=== PATIENT | female | born 1940 | race Caucasian/White ===

== ENCOUNTER 2022-02-16 09:45 | Outpatient (RCR) | payer MEDICARE, BC, SELFPAY ==
--- NOTE | 2022-01-19 14:07 | PT.OPEX ---
PT [place] [facility] PT [facility] Eval Start: 01/19/22 09:51 Freq: Status: Active Protocol: Document 01/19/22 12:23 TUTU (Rec: 01/19/22 14:01 SEW [id number]) E-Signed By Kami Ross DPT Physical Therapy Outpatient Evaluation Insurance Information Recert Due Date 03/20/22 Insurance Name Medicare B Medical Diagnosis acute mechanical LBP Treating Diagnosis mechanical back pain; impaired ROM, impaired thoracic joint mobility and soft tissue tightness; glute and core weakness Referring MD Dr. Garcia Subjective Subjective Pt reports onset of more intense back pain L>R and central in mid back area about 10 days ago. She didn't do anything sudden or have pain suddenly while doing an activity. A few months ago ( early October) her and her returned from their home in [place]. Once they got home they started tending to their large acreage property with gardening and taking care of flower beds. She states she was working several hours each day, weeding, gardening, bending over. She felt some achy-ness at the end of each day but nothing painful like she is experiencing now. Saw Dr. Garcia about a week ago, she is now on narcotics twice per day (not sure what medication), using lidocaine patches, she takes hot baths to ease the pain and is laying down most of the day to relieve pain. She can tolerate being up for about 45 minutes total at a time. Pain worse with sitting up straight in high back chair, or bending. Laying down immediately relieves it. No pain when she sleeps or first gets up, but feels it within 15 minutes of being awake and up out of bed. Gradually gets worse throughout the day where she isn't able to tolerate her 1-2 mile walks with her dogs that she typically does. Helps to have lumbar support roll or lumbar support in the car seat. No pain while sitting and driving because of this. No numbness/tingling, radicular pain. Located mostly in L mid back and sometimes radiates up. She doesn't lift anything heavy but has modified her normal lifting due to pain. She is very active at baseline: yoga, swimming, used to do weight machines prior to COVID pandemic, and was a lifelong skiier. [place]. Pt reports she is eating standing up because she can't tolerate sitting at dining room table. Goals are to reduce pain completely. No prior hx of back pain episodes but notes she's had scoliosis with no issues in the past. No imaging has been done recently. Hx also of L RAPHAEL a few years ago with no issues following. Also has broken a few bones skiing in L leg, and tore her L ACL with nonsurgical rehab. Pain Comments 9/10 at worst Current Work Status Retired Precautions Treatment Precautions/Contraindications PMH: L RAPHAEL at [facility] a few years ago; hx of L ACL tear and broken bones Therapy Limitations/Systems Review Not Limited Objective Range of Motion Lumbar ROM: flexion + pain at mid arzate, has full ROM extension full with no pain SB/ROT untested due to pain increased in standing Thoracic: Flexion limited 50% d/t pain extension full no pain SB and ROT + pain to L with 50 % limited motion Hip: Full ROM Strength Hip abduction: R 4+/5, L 4/5 Hip extension: R 4+/5, L 3+/5 Quads, hip flexors, hamstrings , ankle 5/5 grossly Swelling none Palpation Tender L thoracic paraspinals; L T8-12 joints, central PA's T8-12 Balance & Gait normal Posture scoliotic posture, lean to L Sensation/Reflexes intact Functional Test Performed & Score PA mob testing: (+) Left T8-10 (worst) and less sore T11-12; Central PA's tender T8-12, hypomobile L1-5 CPA's Active SLR: (-) B Functional squat: (-) pain, full squat TA activation: poor, needs cueing Hip traction: (+) relief of pain Assessment Assessment/Impression Pt presents with onset of intense thoracic/lumbar back pain mostly on L side 10 days ago, but gradual mild pain ongoing for a few months. No prior hx of back pain in her life but pt does have mild scoliosis. Exam findings point to L sided thoracic joint irritations and soft tissue tightness, impaired joint mobility, decreased thoracic ROM flexion, SB and ROT to left, decreased lumbar ROM flexion, glute weakness, core weakness, and directional preference into thoracic and lumbar extension. 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 She is highly motivated and a great candidate for PT. Responded excellent to manual therapy and extension program which was initiated today with significant reduction in pain following session. Primary Functional Limitations sitting in straight back chair ; bending, standing too long, walking too long, gardening, ADL's Plan of Care Rehabilitation Potential Good Physical Therapy Goals Within 8 weeks: 1. Pt will be IND with HEP to self manage her condition/ symptoms. 2. Pt will be able to sit for more than 10 minutes to tolerate eating dinner at the dinner table. 3. Pt will be able to stand for greater than 1 hour to improve standing tolerance. 4. Pt will be able to bend over to grab the dog leash or lift a small light item from the floor without back pain. 5. Pt will report 50% improvement in pain symptoms throughout the day overall. Coordination/Communication With Referral Source Treatment Plan/Direct Interventions Gait Training,Joint Mobilization,Manual Therapy, Neuromuscular Re-ed,Self-Care/ Home Management,Therapeutic Activities,Therapeutic Exercises,Traction (Mechanical ) Frequency/Duration 1-2x weekly for up to 8 weeks scaling back frequency as symptoms resolve Patient Will Be Discharged From Therapy Completion of LTG(s),Skills Plateau,Independent w/HEP, Independently Progressing Evaluation Billing Untimed Code Treatment Minutes 25 PT Eval No Charge No Complexity Low Certification Information Initial Certification Date 01/19/22 Ending Certification Date 03/20/22
== END 2022-07-21 10:46 | disposition home or self-care (01) ==
PROVIDERS: PCP Internal Medicine; Visit Provider Internal Medicine
DX: M54.50 Low back pain, unspecified (principal); Z51.89 Encounter for other specified aftercare
CPT/HCPCS: 97110; 97140; 97161

== ENCOUNTER 2022-05-26 19:34 | Outpatient (CLI) | payer MEDICARE, BC, SELFPAY | END 2022-05-26 19:35 | disposition home or self-care (01) | LOC: AMB 06-04 12:11 | PROVIDERS: PCP Internal Medicine; Visit Provider Family Medicine | DX: R53.1 Weakness (principal); R11.2 Nausea with vomiting, unspecified | CPT/HCPCS: A0425; A0427 ==

== ENCOUNTER 2022-05-26 20:07 | Emergency (ER) | payer MEDICARE, BC, SELFPAY ==
[2022-05-26 20:15] VITALS: BP 160/86; PULSE 84; RESP 20; TEMP 36.7; O2SAT 97; BMI 23.3
[2022-05-26 20:40] VITALS: BP 118/72; PULSE 79; RESP 16; O2SAT 98
[2022-05-26 21:00] VITALS: BP 144/73; PULSE 76; RESP 16; O2SAT 97
[2022-05-26 21:20] VITALS: BP 145/74; PULSE 79; RESP 16; O2SAT 97
[2022-05-26] MEDS: 0.9 % SODIUM CHLORIDE 1000 ml 1,000 ML IV (21:40)
[2022-05-26] MEDS: PROMETHAZINE 25 MG/ML INJ 12.5 MG IVP (21:40)
[2022-05-26 21:48] LABS: PCR FLU A Negative PCR FLU A (Negative); PCR FLU B Negative PCR FLU B (Negative); PCR RSV Negative PCR RSV (Negative); SARS PCR* Negative SARS-CoV-2 (Negative)
[2022-05-26 22:00] VITALS: BP 151/75; PULSE 68; RESP 16; O2SAT 97
[2022-05-26 22:39] VITALS: BP 148/68; PULSE 71; RESP 16; TEMP 36.7
--- NOTE | 2022-05-27 14:01 | ED_ITS ---
HPI - General Adult General Chief complaint: Nausea/Vomiting Stated complaint: Syncope Time Seen by Provider: 05/26/22 20:59 History of Present Illness HPI narrative: 82-year-old woman presenting via EMS with her with complaint of recurrent vomiting. Sounds like visiting from [place]. [place]? In the midst of these episodes this evening apparently did have a syncopal event; feeling quite out of it; just did not see herself being able to recover on her own. Outside of vomiting was not short of breath. No chest pain. No sensation of palpitations or irregular heartbeats. Has not had a fever. Notes a long history of what sounds to be cyclic vomiting syndrome. She later describes having a feeling that something was coming on. She took promethazine but does think she probably vomited it up. She also has what sounds like a sublingual ?amlodipine? that would also sometimes help. Has had these mild episodes since last major occurrence about 2 years ago. Recounts having 2 IVs in some sort of a sedative for treatment. Admits that is a resident of [place] would have access to a lot of marijuana or other treatments but does not use them. She is quite dry in her mouth. Not really having abdominal pain. By the time I am seeing her she has received almost a L of fluids as well as Zofran. Improved. Your notes that is a little sore on her left hip though she was observed to be ambulating to the bathroom earlier. She thinks she fell on her postoperative left hip. Does not think that really anything else is wrong other than the cyclic vomiting issue. Related Data Home Medications Medication Instructions Recorded Confirmed amlodipine 10 mg tablet 10 mg PO .Daily as needed 01/12/22 01/12/22 atorvastatin 40 mg tablet 40 mg PO .Bedtime 01/12/22 01/12/22 metoprolol succinate 50 mg 50 mg PO QDAY 01/12/22 01/12/22 tablet,extended release 24 hr omeprazole 40 mg capsule,delayed 40 mg PO QDAY 01/12/22 01/12/22 release ondansetron 4 mg disintegrating 4 mg PO PRN 01/12/22 01/12/22 tablet promethazine 25 mg tablet 25 mg PO PRN 01/12/22 01/12/22 Previous Rx's Medication Instructions Recorded naproxen 500 mg tablet 500 mg PO BIDWMEAL #28 tabs 01/12/22 Allergies Allergy/AdvReac Type Severity Reaction Status Date / Time Sugars, Metabolically Active AdvReac Intermediate Fainting Verified 01/12/22 13:58 Review of Systems Status of ROS: Reports: 10 or more systems reviewed and unremarkable except as noted in History and below [facility] Surgical History History of hip replacement (~09/2019) History of hysterectomy (~1989) Social History Smoking Status: Never smoker Do you use any of these nicotine containing products: None How often do you have a drink containing alcohol: never AUDIT-C Alcohol total score: 0 Non-prescribed substance use: denies use Exam 2 Narrative: Exam Narrative: Is noted brought in by EMS. I am seeing her after she has received some fluids. Is still having a little difficulty talking due to rather dry mouth lips rather dry. Pleasantly talkative. Cranial nerves 2-12 to be intact. Head looks to be atraumatic. Neck is supple and nontender. Back is nontender. Lungs clear. Have seen her ambulating without notable difficulty. Cardiovascular with regular rate and rhythm. Abdomen is soft and generally mildly tender. Masses appreciated. Moving all extremities without difficulty. Able to transition herself in bed. Lower extremities are without edema. EKG reviewed by me is normal sinus. Const: Vital Signs, click to edit/add: Vital Signs - 24 hr 05/26/22 20:15 05/26/22 22:00 05/26/22 21:20 Temperature 98.0 F Pulse Rate [Right Pulse Oximeter] 84 68 79 Respiratory Rate 20 16 16 Blood Pressure [Ri ght Upper Arm] 160/86 H 151/75 H 145/74 H Pulse Oximetry 97 97 97 Oxygen Delivery Me thod Room Air Room Air Room Air 05/26/22 21:00 05/26/22 20:40 05/26/22 22:39 Temperature 98.0 F Pulse Rate [Right Pulse Oximeter] 76 79 71 Respiratory Rate 16 16 16 Blood Pressure [Ri ght Upper Arm] 144/73 H 118/72 148/68 H Pulse Oximetry 97 98 Oxygen Delivery Me thod Room Air Room Air Documenting provider has reviewed patient's vital signs: yes Course Vital Signs Vital signs: Initial Vital Signs Temperature 98.0 F 05/26/22 20:15 Temperature Source Temporal Artery Scan 05/26/22 20:15 Pulse Rate 84 05/26/22 20:15 Respiratory Rate 20 05/26/22 20:15 Blood Pressure 160/86 H 05/26/22 20:15 Blood Pressure Mean 110 05/26/22 20:15 Blood Pressure Position Supine 05/26/22 20:15 Pulse Oximetry 97 05/26/22 20:15 Oxygen Delivery Method 05/26/22 20:15 Vital Signs Temperature 98.0 F 05/26/22 20:15 Pulse Rate 84 05/26/22 20:15 Respiratory Rate 20 05/26/22 20:15 Blood Pressure 160/86 H 05/26/22 20:15 Pulse Oximetry 97 05/26/22 20:15 Oxygen Delivery Method 05/26/22 20:15 Temperature 98.0 F 05/26/22 22:39 Pulse Rate 71 05/26/22 22:39 Respiratory Rate 16 05/26/22 22:39 Blood Pressure 148/68 H 05/26/22 22:39 Pulse Oximetry 97 05/26/22 22:00 Oxygen Delivery Method 05/26/22 22:00 Medical Decision Making MDM Narrative Medical decision making narrative: Initially given L of normal saline and Zofran. Overall improved though still with some residual nausea. Further given promethazine IV and I think she would benefit from more fluids which also were also given. Continues to clear and feel better. Brief duration of vomiting I don't think necessitates chemistries further in the setting of reported history. Able to tolerate oral liquid. Ambulatory from the ER. Triple screen negative Lab Data Labs: Lab Results 05/26/22 Range/Units 20:50 SARS-CoV-2 (PCR) Negative SARS-CoV-2 (Negative) Influenza Type A (PCR) Negative PCR FLU A (Negative) Influenza Type B (PCR) Negative PCR FLU B (Negative) RSV (PCR) Negative PCR RSV (Negative) ECG Data Attestation: I personally reviewed and interpreted this ECG as follows: Discharge Plan Discharge Clinical Impression: Cyclic vomiting syndrome, Dehydration Patient Disposition: Home w/ Parent or Adult Condition: Improved Additional Instructions: Was a pleasure taking care of you this evening. Do hope you only continue to improve. I am sure you know how to take care of yourself better than I can advise now. Slow advance of diet focusing on hydration. Prescriptions: No Action amlodipine 10 mg tablet 10 mg PO .Daily as needed atorvastatin 40 mg tablet 40 mg PO .Bedtime omeprazole 40 mg capsule,delayed release(DR/EC) 40 mg PO QDAY ondansetron 4 mg tablet,disintegrating 4 mg PO PRN metoprolol succinate 50 mg tablet extended release 24 hr 50 mg PO QDAY promethazine 25 mg tablet 25 mg PO PRN naproxen 500 mg tablet 500 mg PO BIDWMEAL Qty: 28 0RF Rx Instructions: take with breakfast and supper Follow Up/Referrals: Ginny Garcia MD [Primary Care Provider] - Stand Alone Forms: [facility] Medical Info Instructions
== END 2022-05-26 22:53 | disposition home or self-care (01) ==
PROVIDERS: Emergency Provider Family Medicine; PCP Internal Medicine
DX: R11.15 Cyclical vomiting syndrome unrelated to migraine (principal); E86.0 Dehydration
CPT/HCPCS: 87502; 87634; 87635; 96374; 99284; J2550; J7030

== ENCOUNTER 2024-02-22 23:00 | Outpatient (CLI) | payer MEDICARE, BC, SELFPAY | END 2024-02-22 23:01 | disposition home or self-care (01) | LOC: AMB 02-24 03:23 | PROVIDERS: PCP Internal Medicine; Visit Provider Family Medicine | DX: U07.1 COVID-19 (principal); R55 Syncope and collapse; R11.0 Nausea | CPT/HCPCS: A0425; A0427 ==

== ENCOUNTER 2024-02-22 23:25 | Emergency (ER) | payer MEDICARE, BC, SELFPAY ==
[2024-02-22 23:29] VITALS: BP 159/73; PULSE 100; RESP 20; TEMP 37.1; O2SAT 93
--- NOTE | 2024-02-22 23:39 | ED.GENADULT ---
HPI - General Adult General Chief complaint: Syncope/Fainted Stated complaint: covid Time Seen by Provider: 02/22/24 23:34 History of Present Illness HPI narrative: Pt began feeling unwell today. Tested pos for covid. Has had severe cold/flu symptoms all day (achy, weak , congested, diarrhea). Went to take the dog out at 2130 -2200. Passed out during this , doesn't remember what happened. Woke up on the floor with EMS asking her who the president was. Has been nauseous, got IV zofran 4mg from EMS. Nausea is better. BG 143 84-year-old woman presenting to the emergency department after apparent syncopal event. I have been feeling like having a really bad cold today ultimately testing positive a couple of times for COVID at home. Cough. Not really short of breath. Has been having some diarrhea and feeling increasingly bloated uncomfortable abdomen. Weak. Got up to run the dog 1 more time she says and apparently woke up on the floor. No history of seizures. Woke up to EMS. Received IV Zofran. Does still have a little nausea but mostly improved. Not measured a fever. Generally quite active and exercise tolerant. From [place] specifically [place]. Notes surprise that she does not usually crash like this unless she has sugar Related Data Home Medications ?Medication ?Instructions ?Recorded ?Confirmed amlodipine 10 mg tablet 10 mg PO .Daily as needed 01/12/22 02/22/24 atorvastatin 40 mg tablet 40 mg PO .Bedtime 01/12/22 02/22/24 metoprolol succinate 50 mg 50 mg PO QDAY 01/12/22 02/22/24 tablet,extended release 24 hr omeprazole 40 mg capsule,delayed 40 mg PO QDAY 01/12/22 02/22/24 release ondansetron 4 mg disintegrating 4 mg PO PRN 01/12/22 01/05/23 tablet promethazine 25 mg tablet 25 mg PO PRN 01/12/22 01/05/23 calcium acetate 667 mg tablet 1,334 mg PO 3XD 11/25/22 01/05/23 cholecalciferol (vitamin D3) 25 25 mcg PO DAILY 11/25/22 01/05/23 mcg (1,000 unit) tablet Previous Rx's ?Medication ?Instructions ?Recorded nirmatrelvir 150 mg-ritonavir 100 See Rx Instructions PO .COMPLEX 02/23/24 mg tablets in a dose pack #20 ea (Paxlovid) Allergies Allergy/AdvReac Type Severity Reaction Status Date / Time Sugars, Metabolically Active AdvReac Intermediate Fainting Verified 01/05/23 09:22 Review of Systems Status of ROS: Reports: 6 or more systems reviewed and unremarkable except as noted in History and below PFSH PFSH Surgical History History of hip replacement (~09/2019) ?Z96.649 - Presence of unspecified artificial hip joint (ICD-10) History of hysterectomy (~1989) ?Z90.710 - Acquired absence of both cervix and uterus (ICD-10) Social History Smoking Status: Never smoker Do you use any of these nicotine containing products: None How often do you have a drink containing alcohol: never How often do you have six or more drinks on one occasion: Never AUDIT-C Alcohol total score: 0 Non-prescribed substance use: denies use Little interest or pleasure in doing things: not at all Feeling down, depressed, or hopeless: not at all Exam Narrative: Exam Narrative: Pleasant. NAD. Does appear little tired. Cranial nerves 2-12 intact. Pupils are 2 mm and equal. Lungs with some trace clearing crepitus in the right upper lung. Heart in elevated rate and regular rhythm. Abdomen is full and generally mildly uncomfortable to palpation. Little tympanitic. Present bowel sounds. Well-perfused peripherally. Extremities are without edema. Mouth is a little sticky. Const: Vital Signs, click to edit/add: Vital Signs - 24 hr 02/22/24 23:29 02/22/24 23:42 02/22/24 23:49 Temperature 98.8 F Pulse Rate 101 H Pulse Rate [Pulse Oximeter] 100 Pulse Rate [orthos tatic lying Pulse Oximeter] Pulse Rate [orthos tatic sitting Puls e Oximeter] Pulse Rate [orthos tatic standing Pul se Oximeter] Respiratory Rate 20 Blood Pressure Blood Pressure [Ri ght Upper Arm] 159/73 H Blood Pressure [or thostatic lying Ri ght Arm] Blood Pressure [or thostatic sitting Right Arm] Blood Pressure [or thostatic standing Right Arm] Pulse Oximetry 93 92 94 Oxygen Delivery Me thod Room Air 02/23/24 00:00 02/23/24 00:24 02/23/24 00:30 Temperature Pulse Rate 90 89 86 Pulse Rate [Pulse Oximeter] Pulse Rate [orthos tatic lying Pulse Oximeter] Pulse Rate [orthos tatic sitting Puls e Oximeter] Pulse Rate [orthos tatic standing Pul se Oximeter] Respiratory Rate Blood Pressure 153/73 H Blood Pressure [Ri ght Upper Arm] Blood Pressure [or thostatic lying Ri ght Arm] Blood Pressure [or thostatic sitting Right Arm] Blood Pressure [or thostatic standing Right Arm] Pulse Oximetry 90 94 92 Oxygen Delivery Me thod 02/23/24 00:32 02/23/24 00:33 02/23/24 01:00 Temperature Pulse Rate 89 84 81 Pulse Rate [Pulse Oximeter] Pulse Rate [orthos tatic lying Pulse Oximeter] Pulse Rate [orthos tatic sitting Puls e Oximeter] Pulse Rate [orthos tatic standing Pul se Oximeter] Respiratory Rate Blood Pressure 155/70 H Blood Pressure [Ri ght Upper Arm] Blood Pressure [or thostatic lying Ri ght Arm] Blood Pressure [or thostatic sitting Right Arm] Blood Pressure [or thostatic standing Right Arm] Pulse Oximetry 92 91 89 Oxygen Delivery Me thod 02/23/24 01:01 02/23/24 01:15 02/23/24 01:15 Temperature Pulse Rate 83 90 Pulse Rate [Pulse Oximeter] Pulse Rate [orthos tatic lying Pulse Oximeter] 90 Pulse Rate [orthos tatic sitting Puls e Oximeter] Pulse Rate [orthos tatic standing Pul se Oximeter] Respiratory Rate Blood Pressure 157/71 H 156/72 H Blood Pressure [Ri ght Upper Arm] Blood Pressure [or thostatic lying Ri ght Arm] 156/72 H Blood Pressure [or thostatic sitting Right Arm] Blood Pressure [or thostatic standing Right Arm] Pulse Oximetry 92 93 Oxygen Delivery Me thod 02/23/24 01:17 02/23/24 01:17 02/23/24 01:19 Temperature Pulse Rate 94 Pulse Rate [Pulse Oximeter] Pulse Rate [orthos tatic lying Pulse Oximeter] Pulse Rate [orthos tatic sitting Puls e Oximeter] 94 Pulse Rate [orthos tatic standing Pul se Oximeter] Respiratory Rate Blood Pressure 161/87 H 168/78 H Blood Pressure [Ri ght Upper Arm] Blood Pressure [or thostatic lying Ri ght Arm] Blood Pressure [or thostatic sitting Right Arm] 161/87 H Blood Pressure [or thostatic standing Right Arm] Pulse Oximetry 93 Oxygen Delivery Me thod 02/23/24 01:19 02/23/24 01:24 02/23/24 01:30 Temperature Pulse Rate 101 H 93 Pulse Rate [Pulse Oximeter] Pulse Rate [orthos tatic lying Pulse Oximeter] Pulse Rate [orthos tatic sitting Puls e Oximeter] Pulse Rate [orthos tatic standing Pul se Oximeter] 103 H Respiratory Rate Blood Pressure Blood Pressure [Ri ght Upper Arm] Blood Pressure [or thostatic lying Ri ght Arm] Blood Pressure [or thostatic sitting Right Arm] Blood Pressure [or thostatic standing Right Arm] 168/78 H Pulse Oximetry 95 95 Oxygen Delivery Me thod 02/23/24 01:32 Temperature Pulse Rate 92 Pulse Rate [Pulse Oximeter] Pulse Rate [orthos tatic lying Pulse Oximeter] Pulse Rate [orthos tatic sitting Puls e Oximeter] Pulse Rate [orthos tatic standing Pul se Oximeter] Respiratory Rate Blood Pressure 158/78 H Blood Pressure [Ri ght Upper Arm] Blood Pressure [or thostatic lying Ri ght Arm] Blood Pressure [or thostatic sitting Right Arm] Blood Pressure [or thostatic standing Right Arm] Pulse Oximetry [address] [facility] provider has reviewed patient's vital signs: yes Course Vital Signs Vital signs: Initial Vital Signs Temperature 98.8 F 02/22/24 23:29 Temperature Source Temporal Artery Scan 02/22/24 23:29 Pulse Rate 100 02/22/24 23:29 Respiratory Rate 02/22/24 23:29 Blood Pressure 159/73 H 02/22/24 23:29 Blood Pressure Mean 101 02/22/24 23:29 Blood Pressure Position Supine 02/22/24 23:29 Pulse Oximetry 93 02/22/24 23:29 Oxygen Delivery Method Room Air 02/22/24 23:29 Vital Signs Temperature 98.8 F 02/22/24 23:29 Pulse Rate 100 02/22/24 23:29 Respiratory Rate 20 02/22/24 23:29 Blood Pressure 159/73 H 02/22/24 23:29 Pulse Oximetry 93 02/22/24 23:29 Oxygen Delivery Method Room Air 02/22/24 23:29 Temperature 98.8 F 02/22/24 23:29 Pulse Rate 92 02/23/24 01:32 Respiratory Rate 20 02/22/24 23:29 Blood Pressure 158/78 H 02/23/24 01:32 Pulse Oximetry 93 02/23/24 01:32 Oxygen Delivery Method Room Air 02/22/24 23:29 Medications Administered Medications: Discontinued Medications Generic Name Dose Route Start Last Admin Trade Name Anjali PRN Reason Stop Dose Admin Sodium Chloride 1,000 mls @ 1,000 mls/hr 02/22/24 23:51 02/23/24 01:53 0.9 % Sodium Chloride 1000 Ml IV 02/23/24 00:50 Infused .Q1H ONE Infusion Medical Decision Making MDM Narrative Medical decision making narrative: This really does seem to have been an orthostatic syncopal event in in otherwise generally healthy woman with apparent new onset COVID. Review EKG showing sinus rhythm with some PVCs with a rate of 96. Does not sound to have struck her head. No lingering or prodromal symptoms to otherwise warrant imaging. Would check for cardiovascular event monitor on manager cardiac cath. Orthostatics measure negative. Labs are reassuring. On reassessment notes herself to be markedly improved. No events on monitor. PVCs noted. GFR of 50. Renally dosed Paxlovid. Reviewed medications restrictions on Paxlovid. See patient discharge plan for further discussion Lab Data Lab results reviewed: Yes I reviewed the patient's lab results Labs: Lab Results 02/22/24 02/22/24 Range/Units 23:52 23:56 Hgb 12.5 (12.0-16.0) gm/dL Sodium 137 (135-149) mmol/L Potassium 3.9 (3.6-5.1) mmol/L Chloride 105 (96-114) mmol/L Carbon Dioxide 22 (20-32) mmol/L Anion Gap 10 (7-15) mEq/L BUN 19 (7-30) mg/dL Creatinine 1.1 (0.5-1.5) mg/dL Estimated GFR 50 ml/min Glucose 139 H (60-115) mg/dL Calcium 9.5 (8.4-10.6) mg/dL Troponin I < 0.01 L (0.01-0.04) ng/mL POC Troponin I 0.00 L (0.01-0.04) ng/ml ECG Data Attestation: I personally reviewed and interpreted this ECG as follows: (Sinus rhythm. PVCs. Rate of 96) Discharge Plan Discharge Clinical Impression: COVID, Orthostatic syncope, Diarrhea, Unifocal PVCs Patient Disposition: Home w/ Parent or Adult Condition: Improved Additional Instructions: Focus on hydration. Take care in transitions. Consider [id number] decongestant like pseudoephedrine to help with your cough. Might also try guaifenesin. Consider sleeping under the mist of a cool mist humidifier. Prescribing Paxlovid for 5 days. Consider taking half the daily dose of amlodipine over the course of this Paxlovid Hold atorvastatin until 3 days after finishing course of Paxlovid Prescriptions: New Paxlovid 150-100 mg tablets,dose pack See Rx Instructions .ROUTE .COMPLEX Qty: 20 0RF Rx Instructions: orally per package directions No Action amlodipine 10 mg tablet 10 mg PO .Daily as needed atorvastatin 40 mg tablet 40 mg PO .Bedtime omeprazole 40 mg capsule,delayed release(DR/EC) 40 mg PO QDAY ondansetron 4 mg tablet,disintegrating 4 mg PO PRN metoprolol succinate 50 mg tablet extended release 24 hr 50 mg PO QDAY promethazine 25 mg tablet 25 mg PO PRN calcium acetate 667 mg tablet 1,334 mg PO 3XD cholecalciferol (vitamin D3) 25 mcg (1,000 unit) tablet 25 mcg PO DAILY Follow Up/Referrals: Provider,Not a Local [Non-Staff] - Stand Alone Forms: [employer] Info Instructions
[2024-02-22 23:42] VITALS: O2SAT 92
[2024-02-22 23:49] VITALS: PULSE 101; O2SAT 94
[2024-02-23] VITALS (13 sets, daily range): BP systolic 153–168; BP diastolic 70–87; PULSE 81–103; O2SAT 89–95
[2024-02-23] LABS: Hemoglobin* 12.5 gm/dL (12.0-16.0)
[2024-02-23] MEDS: 0.9 % SODIUM CHLORIDE 1000 ml 1,000 ML IV (00:25)
[2024-02-23 00:36] LABS: Chloride* 105 mmol/L (96-114); Potassium* 3.9 mmol/L (3.6-5.1); Sodium* 137 mmol/L (135-149)
[2024-02-23 00:39] LABS: Anion Gap 10 mEq/L (7-15); Blood Urea Nitrogen* 19 mg/dL (7-30); Carbon Dioxide* 22 mmol/L (20-32); Creatinine* 1.1 mg/dL (0.5-1.5); Estimated Glomerular Filt Rate 50 ml/min
[2024-02-23 00:40] LABS: Calcium* 9.5 mg/dL (8.4-10.6); Glucose* 139 mg/dL (60-115)
[2024-02-23 00:54] LABS: Troponin I* < 0.01 ng/mL (0.01-0.04)
== END 2024-02-23 02:05 | disposition home or self-care (01) ==
PROVIDERS: Emergency Provider Family Medicine; PCP Internal Medicine
DX: R55 Syncope and collapse (principal); U07.1 COVID-19; I49.3 Ventricular premature depolarization
CPT/HCPCS: 36415; 80048; 84484; 85018; 93005; 94761; 99284; J7030

== ENCOUNTER 2025-04-17 00:18 | Emergency (ER) | payer MEDICARE, BC, SELFPAY ==
--- OUTSIDE RECORDS SUMMARY | 2025-04-10 10:00 | XMS_ITS | Encounter Summary ---
Author Organization [facility] Address [address] [place] [address] Care Team Providers Care Dye Boarding Machine Operator Name Role Phone Vidal Glez M.D. Primary Care Provider +1- [phone] Reason for Visit * Reason Onset Date Comments Pre-visit Intake 04/10/2025 * Appointment Request (Routine) - Authorized Specialty Diagnoses / Procedures Referred By Contact Referred To Contact Gastroenterology and Hepatology Referral ID Status Reason Start Date Expiration Date V isits Requested Visits Authorized [id number] Authorized 02/04/2025 05/07/2026 1 1 Encounter Details Date Type Department Care Team (Latest Contact Info) Description 04/10/2025 10:00 AM CDT Clinical Communication Virtual Review in [place], [place] 200 [place] [address] Pre-visit Intake Social History Tobacco Use Types Packs/Day Years Used Date Smoking Tobacco: Never Passive Smoke Exposure: Never Smokeless Tobacco: Never Alcohol Use Standard Drinks/Week Comments Never 0 (1 standard drink = 0.6 oz pur e alcohol) [facility] Utilities Answer Date Recorded In the past 12 months has e electric, gas, oil, or water company threatened to shut off services in your home? No 12/17/2024 Humiliation, Afraid, Rape, and Kick questionnair e Answer Date Recorded Within the last year, have y ou been afraid of your partner or ex-partner? No 04/02/2022 Within the last year, have y ou been humiliated or emotionally abused in other ways by your partner or ex-partner? No Within the last year, have y ou been kicked, hit, slapped, or otherwise physically hurt by your partner or ex-partner? No 04/02/2022 Within the last year, have y ou been raped or forced to have any kind of sexual activity by your partner or ex-partner? No 04/02/2022 Hunger Vital Sign Answer Date Recorded Within the past 12 months, y ou worried that your food would run out before you got the money to buy more. Never true 12/18/19 25 Within the past 12 months, t he food you bought just didn't last and you didn't have money to get more. Never true 12/17/2024 PRAPARE - Transportation Answer Date Re corded In the past 12 months, has l ack of transportation kept you from medical appointments or from getting medications? No 11/26 In the past 12 months, has l ack of transportation kept you from meetings, work, or from getting things needed for daily living? No 12/17/2024 Housing Stability Answer Date Recorded What is your living situation today? I have a [facility] place to live 12/17/2024 Education Answer Date Recorded What is the highest level of school you have completed or the highest degree you have received? Associate degree: occupational, technical, or vocational program 04/02/2022 Comments No Sex and Gender Information Value Date Recorded Sex Assigned at Female 01/11/2018 10:39 AM CDT Legal Sex Female 7:52 AM TRAFFIC INVESTIGATOR Gender Identity Female 01/11/2018 10:39 AM CDT Sexual Orientation Straight 01/11/2018 10 :39 AM CDT documented as of this encounter Plan of Treatment Upcoming Encounters Date Type Department Care Team (Late st Contact Info) Description 06/06/2025 11:45 AM TRAFFIC INVESTIGATOR Appointment Department of Radiology, [facility], in [place], [place] 200 [place] [address] Nacho Browne M.B.B.S., M.S. 200 [place] [address] Discharge Disposition: Home or Self Care documented as of this encounter Visit Diagnoses Not on filedocumented in this encounter Care Teams Dye Boarding Machine Operator Relationship Specialty Start Date End Date Vidal Glez M.D. INGA: [id number] [place] [address] PCP - General Internal Medicine 12/31/24 documented as of this encounter
--- OUTSIDE RECORDS SUMMARY | 2025-04-15 10:33 | XMS_ITS | Encounter Summary ---
Author Organization [facility] Address [address] [place] [address] Care Team Providers Care Plant Engineer Name Role Phone Vidal Glez M.D. Primary Care Provider +1- [phone] Encounter Details Date Type Department Care Team (Latest Contact Info) Description 04/15/2025 10:33 AM CDT - 04/15/2025 11:59 PM CDT Hospital Encounter Department of Laboratory Medicine and Pathology, [facility], in [place], [place] [address] [place] [address] Damian Yu M.D. [address] [place] [address] General Medical Examination Adult Discharge Disposition: Home or Self Care Social History Tobacco Use Types Packs/Day Years Used Date Smoking Tobacco: Never Passive Smoke Exposure: Never Smokeless Tobacco: Never Alcohol Use Standard Drinks/Week Comments Never 0 (1 standard drink = 0.6 oz pur e alcohol) [facility] Utilities Answer Date Recorded In the past 12 months has e [employer], gas, oil, or water [employer] threatened to shut off services in your [...] your living situation today? I have a [facility] place to live 12/17/2024 Education Answer Date Recorded What is the highest level of school you have completed or the highest degree you have received? Associate degree: occupational, technical, or vocational program 04/02/2022 Comments No Sex and Gender Information Value Date Recorded Sex Assigned at Female 01/11/2018 10:39 AM CDT Legal Sex Female 7:52 AM PATIENT FINANCIAL ADVOCATE Gender Identity Female 01/11/2018 10:39 AM CDT Sexual Orientation Straight 01/11/2018 10 :39 AM CDT documented as of this encounter Medications at Time of Discharge acetaminophen (TYLENOL) 500 mg tablet Take 2 tablets (1,000 mg total) by mouth every 6 (six) hours as needed for pain or mild pain or score 1-3 of 10. 11/21/2019 amLODIPine (Norvasc) 10 mg tablet TAKE 1 TABLET(10 MG) BY MOUTH DAILY 90 tablet 3 03/04/2025 atorvastatin (Lipitor) 40 mg tablet TAKE 1 TABLET BY MOUTH EVERY DAY 90 tablet 3 01/29/2025 metoprolol succinate (Toprol XL) 50 mg 24 hr tablet Take 1 tablet (50 mg total) by mouth daily. Do not crush or chew. 90 tablet 3 12/17/2024 ag-xia-H-glutamin-ly sine-hb124 (Airborne, lysine HCl,) 1,000-50 mg tablet, effervescent effervescent tablets Take 1 tablet by mouth daily. Drop one (1) tablet in 4-6 oz of water, let dissolve and drink. Adults and Children 14 years and older, repeat every 3-4 hours as necessary, up to 2 times per day. omeprazole (PriLOSEC) [address] capsule TAKE 1 CAPSULE(40 MG) BY MOUTH DAILY 90 capsule 4 01/29/2025 ondansetron ODT (Zofran-ODT) 4 mg disintegrating tablet Dissolve 1 tablet (4 mg total) in the mouth every 8 (eight) hours as needed for nausea or vomiting. 40 tablet 3 01/22/2025 promethazine (PHENERGAN) 12.5 mg tablet Take 1 tablet (12.5 mg total) by mouth every 6 (six) hours as needed for nausea or vomiting. 30 tablet 02/18/2022 documented as of this encounter Plan of Treatment Upcoming Encounters Date Type Department Care Team (Late st Contact Info) Description 06/06/2025 11:45 AM PATIENT FINANCIAL ADVOCATE Appointment Department of Radiology, [facility], in [place], [place] [address] [place] [phone] Nahco Browne M.B.B.S., M.S. [address] [place] [address] Discharge Disposition: Home or Self Care documented as of this encounter Procedures Procedure Name Priority Date/Time Associated Diagnosis Comments DIPSTICK, U Routine 04/15/2025 11:06 AM CDT MICROSCOPIC MANUAL Routine 04/15/2025 11 :06 AM CDT PH, U Routine 04/15/2025 11:06 AM CDT ALBUMIN, RANDOM, U Routine 04/15/2025 11 :06 AM CDT General Medical Examination Adult OSMOLALITY, U Routine 04/15/2025 11:06 AM CDT URINALYSIS WITH MICROSCOPIC Routine 04/15/2025 11:06 AM CDT General Medical Examination Adult documented in this encounter Results * (ABNORMAL) Microscopic Manual (04/15/2025 11:06 AM CDT) Microscopy Abnormal 04/15/2025 3:15 PM CDT DTL RBC <3 <3 /hpf 04/15/2025 3:15 PM CDT DTL WBC 1-3 /hpf 04/15/2025 3:15 PM CDT DTL Comment: ----REFERENCE VALUE---- <4 (Males) <11 (Females) Casts, Hyaline 4-10 /lpf 04/15/2025 3:15 PM CDT DTL Transitional Epithelial Cells 1-3(A) /hpf 04/15/2025 3:15 PM CDT DTL Squamous Epithelial Cells, U 1-3 /hpf 04/15/2025 3:15 PM CDT DTL Crystals Calcium Oxalate crystals present 04/15/2025 3:15 PM CDT DTL Urine 04/15/2025 11:0 6 AM CDT 04/15/2025 2:50 PM CDT Damian Yu M.D. LAB URINE ORDERAB LES Final Result [facility] [address] [place] [address], [facility] DTL [facility] [address] [place] [address] * Dipstick, Urine (04/15/2025 11:06 AM CDT) Hemoglobin, QL Negative Negative 04/15/2025 2:50 PM CDT DTL Leukocyte Esterase, U Negative Negative 04/15/2025 2:50 PM CDT DTL Nitrite, U Negative Negative 04/15/2025 2:50 PM CDT DTL Ketones, U Negative Negative mg/dL 04/15/2025 2:50 PM CDT DTL Glucose, U Negative Negative mg/dL 04/15/2025 2:50 PM CDT DTL Urine 04/15/2025 11:0 6 AM CDT 04/15/2025 1:44 PM CDT Damian Yu M.D. LAB URINE ORDERAB LES Final Result [facility] [address] [place] [address], [facility] 200 [place] [address] * pH, Urine (04/15/2025 11:06 AM CDT) pH, U 5.6 4.5 - 8.0 04/15/2025 2:1 5 PM CDT DTL Urine 04/15/2025 11:0 6 AM CDT 04/15/2025 1:44 PM CDT us Damian Yu M.D. LAB URINE ORDERAB LES Final Result Performing Organization Address City/[facility]/ZIP Co de Phone Number [facility] [address] [place] [address], [facility] [address] [place] [address] * Osmolality, Urine (04/15/2025 11:06 AM CDT) Osmolality, U 647 150 - 1150 mOsm/kg 04/15/2025 2:15 PM CDT DTL Urine 04/15/2025 11:0 6 AM CDT 04/15/2025 1:44 PM CDT Damian Yu M.D. LAB URINE ORDERAB LES Final Result [facility] 200 [place] [address], [facility] 200 [place] [address] * (ABNORMAL) Urinalysis, with Microscopic: Urine, Midstream (04/15/2025 11:06 AM CDT) Source Urine, Urine, Midstream 04/15/2025 1:43 PM CDT DTL Color, U Yellow 04/15/2025 1:44 PM CDT DTL Clarity, U Clear 04/15/2025 1:44 PM CDT DTL Protein, U 51(H) <26 mg/dL 04/15/2025 2:35 PM CDT DTL Protein/Osmol ality 0.79(H) <0.42 ratio 04/15/2025 2:35 PM CDT DTL Predicted 24 HR Protein, U 539(H) <229 mg/24 h 04/15/2025 2:35 PM CDT DTL Predicted Range 133-2182 mg/24 h 04/15/2025 2:35 PM CDT DTL Comment Micro done on <10 mL 04/15/2025 3:11 PM CDT DTL Urine (Urine, Midstream) 04/15/2025 11:06 AM CDT 04/15/2025 1:43 PM CDT us Damian Yu M.D. LAB URINE ORDERAB LES Final Result [facility] 200 [place] [address], [facility] 200 [place] [address] * (ABNORMAL) Albumin, Random, Urine (04/15/2025 11:06 AM CDT) Pathologist [facility] Albumin, Random, U 82.7 mg/L 2024 3:01 PM CDT DTL Comment: ----ADDITIONAL INFORMATION---- This test has been modified from the facilities director's instructions. Its performance characteristics were determined by [facility] in a manner consistent with CLIA requirements. This test has not been cleared or approved by the U.S. Food and Drug Administration. Creatinine 310 mg/dL 04/15/2025 2:35 PM CDT DTL Albumin/Creatinine Ratio 27(H) <25 mg/g 04/15/2025 3:01 PM CDT DTL Urine (Urine, Midstream) 04/15/2025 11:06 AM CDT 04/15/2025 1:56 PM CDT Damian Yu M.D. LAB URINE ORDERAB LES Final Result [facility] 200 [place], [place] [id number] [place] [address] [facility] 200 [place] [address] documented in this encounter Visit Diagnoses Diagnosis General Medical Examination Adult documented in this encounter Care Teams Plant Engineer Relationship Specialty Start Date End Date Vidal Glez M.D. [address] [place] [phone] PCP - General Internal Medicine 12/31/24 documented as of this encounter
--- OUTSIDE RECORDS SUMMARY | 2025-04-15 10:33 | XMS_ITS | Encounter Summary ---
Author Organization [facility] Address [address] [place] [address] Care Team Providers Care Manager Truck Name Role Phone Vidal Glez M.D. Primary Care Provider +1- [phone] Encounter Details Date Type Department Care Team (Latest Contact Info) Description 04/15/2025 10:33 AM CDT - 04/15/2025 11:59 PM CDT Hospital Encounter Department of Laboratory Medicine and Pathology, [facility], in [place], [place] [address] [place] [address] Damian Yu M.D. [address] [place] [address] General Medical Examination Adult; Gammopathy Monoclonal Nonspecific Discharge Disposition: Home or Self Care Social History Tobacco Use Types Packs/Day Years Used Date Smoking Tobacco: Never Passive Smoke Exposure: Never Smokeless Tobacco: Never Alcohol Use Standard Drinks/Week Comments Never 0 (1 standard drink = 0.6 oz pur e alcohol) [facility] Utilities Answer Date Recorded In the past 12 months has e [employer], gas, oil, or water [employer] threatened to shut off services in your [...] your living situation today? I have a [facility] place to live 12/17/2024 Education Answer Date Recorded What is the highest level of school you have completed or the highest degree you have received? Associate degree: occupational, technical, or vocational program 04/02/2022 Comments No Sex and Gender Information Value Date Recorded Sex Assigned at Female 01/11/2018 10:39 AM CDT Legal Sex Female 7:52 AM SET UP MECHANIC STAMPING MACHINES Gender Identity Female 01/11/2018 10:39 AM CDT [...] crush or chew. 90 tablet 3 12/17/2024 it-qhs-K-glutamin-ly sine-hb124 (Airborne, lysine HCl,) 1,000-50 mg tablet, [...] st Contact Info) Description 06/06/2025 11:45 AM SET UP MECHANIC STAMPING MACHINES Appointment Department of Radiology, [facility], in [place], [place] [address] [place] [phone] Nacho Browne M.B.B.S., M.S. [address] [place] [phone] Discharge Disposition: Home or Self Care documented as of this encounter Procedures Procedure Name Priority Date/Time Associated Diagnosis Comments QUANTITATIVE M-PROTEIN STUDY, S Routine 04/15/2025 10:59 AM CDT Gammopathy Monoclonal Nonspecific CBC WITH DIFFERENTIAL, B Routine 04/15/2025 10:59 AM CDT General Medical Examination Adult Gammopathy Monoclonal Nonspecific ALKALINE PHOSPHATASE, S/P Routine 04/15/2025 10:59 AM CDT General Medical Examination Adult documented in this encounter Results * (ABNORMAL) Quantitative M-protein Study (04/15/2025 10:59 AM CDT) Immunoglobulin A (IgA), S 265 61 - 356 mg/dL 04/16/2025 7:47 AM CDT [facility] Immunoglobulin M (IgM), S 279 37 - 286 mg/dL 04/16/2025 7:47 AM CDT [facility] Immunoglobulin G (IgG), S 949 767 - 1590 mg/dL 04/16/2025 7:47 AM CDT [facility] Therapeutic Antibody Administered? Unspecified 04/15/2025 6:12 PM CDT [facility] M-protein ML 0.119(H) g/dL 04/16/2025 1:31 PM CDT [facility] Flag, M-protein Isotype Positive(A) Negative 04/16/2025 1:31 PM CDT [facility] QMPTS Interpretation IgM lambda 0.119 g/dL 04/16/2025 1:31 PM CDT [facility] Comment: ----ADDITIONAL INFORMATION---- The submitted sample was assayed by five separate immunopurifications for IgG, IgA, IgM, kappa and lambda. The result reflects the findings of either no monoclonal protein detected or those monoclonal immunoglobulins that were detected. This test was developed and its performance characteristics determined by [facility] in a manner consistent with CLIA requirements. This test has not been cleared or approved by the U.S. Food and Drug Administration. Blood (Blood, Venous) 04/15/2025 10:59 AM CDT 04/15/2025 4:[address] [facility] - 04/16/2025 1:31 PM CDT Specimen Information: Specimen ID: [id number] Specimen Type: Blood Specimen Collection Start Date: 04/15/2025 10:59 AM Specimen Received Date: 04/15/2025 4:37 PM Specimen ID: [id number] Specimen Type: Blood Specimen Collection Start Date: 04/15/2025 10:59 AM Specimen Received Date: 04/15/2025 6:12 PM us Vijayvardhan Kamalumpundi M.D. LAB BLOOD ADD-ON Final Result [facility] [address] [place] [address] [facility] [address] [place] [address] [facility] [address] [place] [address] [place] [address] * (ABNORMAL) Alkaline Phosphatase (04/15/2025 10:59 AM CDT) [facility] Alkaline Phosphatase, S 109(H) 35 - 104 U/L 04/15/2025 12:04 PM CDT DTL Blood (Blood, Venous) 04/15/2025 10:59 AM CDT 04/15/2025 11:27 AM CDT Damian Yu M.D. LAB BLOOD ADD-ON Final Result [facility] [address] [place] [address], [facility] DTL [facility] [address] [place] [address] * (ABNORMAL) CBC with Differential, Blood (04/15/2025 10:59 AM CDT) [facility] Hemoglobin 12.9 11.6 - 15.0 g/dL 04/15/2025 12:39 PM CDT DTL Hematocrit 40.2 35.5 - 44.9 % 04/15/2025 12:39 PM CDT DTL Erythrocytes 4.59 3.92 - 5.13 x10(12)/L 04/15/2025 12:39 PM CDT DTL MCV 87.6 78.2 - 97.9 fL 04/15/2025 12:39 PM CDT DTL RBC Distrib Width 14.5 12.2 - 16.1 % 04/15/2025 12:39 PM CDT DTL Platelet Count 305 157 - 371 x10(9)/L 04/15/2025 12:39 PM CDT DTL Leukocytes 9.3 3.4 - 9.6 x10(9)/L 04/15/2025 12:39 PM CDT DTL Neutrophils 5.86 1.56 - 6.45 x10(9)/L 04/15/2025 12:39 PM CDT [facility] Lymphocytes 2.44 0.95 - 3.07 x10(9)/L 04/15/2025 12:39 PM CDT DTL Monocytes 0.83(H) 0.26 - 0.81 x10(9)/L 04/15/2025 12:39 PM CDT DTL Eosinophils 0.14 0.03 - 0.48 x10(9)/L 04/15/2025 12:39 PM CDT DTL Basophils 0.06 0.01 - 0.08 x10(9)/L 04/15/2025 12:39 PM CDT DTL Blood (Blood, Venous) 04/15/2025 10:59 AM CDT 04/15/2025 11:30 AM CDT Damian Yu M.D. LAB BLOOD ADD-ON Final Result [facility] [address] [place] [address], [facility] DTL [facility] [address] [place] [address] DHPM [facility] [address] [place] [address] documented in this encounter Visit Diagnoses Diagnosis General Medical Examination Adult Gammopathy Monoclonal Nonspecific documented in this encounter Care Teams Manager Truck Relationship Specialty Start Date End Date Vidal Glez M.D. [address] [place] [phone] PCP - General Internal Medicine 12/31/24 documented as of this encounter
--- OUTSIDE RECORDS SUMMARY | 2025-04-15 14:20 | XMS_ITS | Encounter Summary ---
Author Organization [facility] Address [address] [place] [address] Care Team Providers Care Calcine Furnace Loader Name Role Phone Vidal Glez M.D. Primary Care Provider +1- [phone] Reason for Referral * MRI/CAT/PET Scan (Routine) - Authorized Specialty Diagnoses / Procedures Referred By Contac t Referred To Contact Radiology Diagnoses Cyst Pancreas Procedures MR Abdomen MRCP without and with IV Contrast Nacho Browne M.B.BJmiiS., M.S. 200 [place] [address] Phone: tel: fax: [facility] Referral ID Status Reason Start Date Expiration Date V isits Requested Visits Authorized [id number] Authorized 04/15/2025 07/16/2026 1 1 Reason for Visit * Outpatient (Routine) - Closed Specialty Diagnoses / Procedures Referred By Contact Referred To Contact Gastroenterology and Hepatology Diagnoses Malabsorption Fructose Pancreatitis Chronic (HCC) Simba Fernandes M.D. 200 [place] [address] Phone: tel: fax: [facility] Referral ID Status Reason Start Date Expiration Date Visits Re quested Visits Authorized [id number] Closed 12/17/2024 06/18/2026 1 1 Encounter Details Date Type Department Care Team (Latest Contact Info) Description 04/15/2025 2:20 PM CDT Comprehensive Visit Division of Gastroenterology in [place], [place] [address] [place] [phone] Simba Fernandes M.D. 200 [place] [phone] Nacho Browne M.B.B.S., M.S. 200 [place] [phone] Cyst Pancreas (Primary Dx) Social History Tobacco Use Types Packs/Day Years Used Date Smoking Tobacco: Never Passive Smoke Exposure: Never Smokeless Tobacco: Never Alcohol Use Standard Drinks/Week Comments Never 0 (1 standard drink = 0.6 oz pur e alcohol) [facility] Utilities Answer Date Recorded In the past 12 months has e [employer], gas, oil, or water [employer] threatened to shut off services in your [...] your living situation today? I have a [facility] place to live 12/17/2024 Education Answer Date Recorded What is the highest level of school you have completed or the highest degree you have received? Associate degree: occupational, technical, or vocational program 04/02/2022 Comments No Sex and Gender Information Value Date Recorded Sex Assigned at Female 01/11/2018 10:39 AM CDT Legal Sex Female 7:52 AM AUTOMOTIVE WORKER FOREMAN Gender Identity Female 01/11/2018 10:39 AM CDT Sexual Orientation Straight 01/11/2018 10 :39 AM CDT documented as of this encounter Last Filed Vital Signs Vital Sign Reading Time Taken Comments Blood Pressure - - Pulse - - Temperature - - Respiratory Rate - - Oxygen Saturation - - Inhaled Oxygen Concentration - - Weight 55.8 kg (123 lb 0.3 oz) 04/15/2025 2:19 P M CDT Height 159 cm (5' 2.6) 04/15/2025 2:19 PM CDT Body Mass Index 22.07 04/15/2025 2:19 PM CDT documented in this encounter Plan of Treatment Upcoming Encounters Date Type Department Care Team (Late st Contact Info) Description 06/06/2025 11:45 AM AUTOMOTIVE WORKER FOREMAN Appointment Department of Radiology, [facility], in [place], [place] [address] [place] [address] Nacho Browne M.B.B.S., M.S. [address] [place] [address] Discharge Disposition: Home or Self Care Scheduled Orders Name Type Priority Associated Diagnoses Orde r Schedule MR Abdomen MRCP without and with IV Contrast Imaging RAD - Routine (most inpatients and all outpatients) Cyst Pancreas Expected: 04/15/2025 (Approximate), Expires: 07/16/2026 documented as of this encounter Visit Diagnoses Diagnosis Cyst Pancreas- Primary documented in this encounter Care Teams Calcine Furnace Loader Relationship Specialty Start Date End Date Newton, Vidal D, M.D. 200 [place] [address] PCP - General Internal Medicine 12/31/24 documented as of this encounter
--- OUTSIDE RECORDS SUMMARY | 2025-04-17 00:20 | XMS_ITS | Clinical Summary ---
Author Organization [facility] Address [address] [place] [id number] Care Team Providers Care Labor Relations Analyst Name Role Phone Unavailable Primary Care Provider Unavailabl e Allergies No known active allergies Medications metoprolol (LOPRESSOR) 50 mg tablet Take 1 tablet by mouth once daily. 0 2 Active lovastatin (MEVACOR) 40 mg tablet Take one tablet by mouth everyday for 1 week, then take two tablets by mouth every day. 0 2 Active promethazine (PHENERGAN) 12.5 mg tablet Take 1 tablet by mouth every 6 hours if needed for Nausea/Vomitin g. 0 2 Active ondansetron (ZOFRAN) 4 mg tablet Take 1 - 2 tab every 6 hours 0 2 Active diclofenac 1 % topical (VOLTAREN) gel Apply topically to affected area(s) 2 times daily. 45 g 1 2 Active Active Problems Problem Noted Date Diagnosed Date Tenosynovitis of wrist 03/30/2012 Tenosynovitis of wrist 03/30/2012 Fatigue 02/02/2012 Social History Tobacco Use Types Packs/Day Years Used Date Smoking Tobacco: Never Smokeless Tobacco: Never Alcohol Use Standard Drinks/Week Comments Not Asked 0 (1 standard drink = 0.6 oz pur e alcohol) Comments Unknown Sex and Gender Information Value Date Recorded Sex Assigned at Not on file Legal Sex Female 5:26 AM APPLIED TECHNOLOGIST Gender Identity Not on file Sexual Orientation Not on file Obstetrics History Last Filed Vital Signs Vital Sign Reading Time Taken Comments Blood Pressure 136/83 03/27/2012 10:02 AM CDT Pulse 69 03/27/2012 10:02 AM CDT Temperature 36.4 C (97.5 F) 03/27/2012 10:02 AM CDT Respiratory Rate - - Oxygen Saturation - - Inhaled Oxygen Concentration - - Weight 66.2 kg (146 lb) 03/27/2012 10:02 AM CDT Height - - Body Mass Index - - Plan of Treatment Health Maintenance Due Date Last Done Comments Tetanus booster 01/16/1951 Depression screening for age 12+ 1952 BMI (ht and wt on same day) for age 18+ 01/16/1958 Pneumococcal series for age 50+ (1 of 1 - PCV) 01/16/1990 Zoster (shingles) series for age 50+ (1 of 2) 01/16/1990 DEXA/DXA scan for age 65+ 01/16/2005 RSV vaccine for adults or (1 - 1-dose 75+ series) 01/16/2015 COVID-19 vaccine series (2024- season) 2025 04/02/2022, 02/25/2021, 08/12/2020, Additional history exists Influenza Vaccine (#1) 2025 Hepatitis B series for 19+ Aged Out N o longer eligible based on patient's age to complete this topic Insurance BLUE CROSS [employer] BLUE MR PB ONLY
--- OUTSIDE RECORDS SUMMARY | 2025-04-17 00:20 | XMS_ITS | Encounter Summary ---
Author Organization [facility] Address [address] [place] [address] Care Team Providers Care Master Sonar Technician Name Role Phone Vidal Glez M.D. Primary Care Provider [phone]- [phone] Encounter Details Date Type Department Care Team (Latest Contact Info) Description 04/16/2025 Results Follow-Up Division of Community Internal Medicine, [facility] in [place], [place] [address] [place] [address] Damian Yu M.D. [address] [place] [address] CBC with Differential, Blood, Alkaline Phosphatase, Quantitative M-protein Study, Additional followed-up results: 6 Social History Tobacco Use Types Packs/Day Years Used Date Smoking Tobacco: Never Passive Smoke Exposure: Never Smokeless Tobacco: Never Alcohol Use Standard Drinks/Week Comments Never 0 (1 standard drink = 0.6 oz pur e alcohol) [facility] Utilities Answer Date Recorded In the past [...] your living situation today? I have a [facility] place to live 12/17/2024 Education Answer Date Recorded What is the highest level of school you have completed or the highest degree you have received? Associate degree: occupational, technical, or vocational program 04/02/2022 Comments No Sex and Gender Information Value Date Recorded Sex Assigned at Female 01/11/2018 10:39 AM CDT Legal Sex Female 7:52 AM ROLL EXAMINER Gender Identity Female 01/11/2018 10:39 AM CDT Sexual Orientation Straight 01/11/2018 10 :39 AM CDT documented as of this encounter Plan of Treatment Upcoming Encounters Date Type Department Care Team (Late st Contact Info) Description 06/06/2025 11:45 AM ROLL EXAMINER Appointment Department of Radiology, [facility], in [place], [place] [address] [place] [address] Nacho Browne M.B.B.S., M.S. [address] [place] [address] Discharge Disposition: Home or Self Care documented as of this encounter Visit Diagnoses Not on filedocumented in this encounter Care Teams Master Sonar Technician Relationship Specialty Start Date End Date Vidal Glez M.D. INGA: [phone] [place] [address] PCP - General Internal Medicine 12/31/24 documented as of this encounter
--- OUTSIDE RECORDS SUMMARY | 2025-04-17 00:20 | XMS_ITS | Encounter Summary ---
Author Organization [facility] Address [address] [place] [address] Care Team Providers Care Condenser Winder Name Role Phone Vidal Glez M.D. Primary Care Provider [phone]- [phone] Reason for Visit * Reason Onset Date Comments Lab Work Clarification 03/14/2025 Encounter Details Date Type Department Care Team (Latest Contact Info) Description 03/14/2025 Clinical Communication Division of Community Internal Medicine, [facility], in [place], [place] [address] [place] [address] Damian Yu M.D. [address] [place] [address] Lab Work Clarification Social History Tobacco Use Types Packs/Day Years Used Date Smoking Tobacco: Never Passive Smoke Exposure: Never Smokeless Tobacco: Never Alcohol Use Standard Drinks/Week Comments Never 0 (1 standard drink = 0.6 oz pur e alcohol) [facility] Utilities Answer Date Recorded In the [...] your living situation today? I have a [facility] place to live 12/17/2024 Education Answer Date Recorded What is the highest level of school you have completed or the highest degree you have received? Associate degree: occupational, technical, or vocational program 04/02/2022 Comments No Sex and Gender Information Value Date Recorded Sex Assigned at Female 01/11/2018 10:39 AM CDT Legal Sex Female 7:52 AM RENTAL CLERK TOOL AND EQUIPMENT Gender Identity Female 01/11/2018 10:39 AM CDT Sexual Orientation Straight 01/11/2018 10 :39 AM CDT documented as of this encounter Plan of Treatment Upcoming Encounters Date Type Department Care Team (Late st Contact Info) Description 06/06/2025 11:45 AM RENTAL CLERK TOOL AND EQUIPMENT Appointment Department of Radiology, [facility], in [place], [place] [address] [place] [address] Nacho Browne M.B.B.S., M.S. [address] [place] [address] Discharge Disposition: Home or Self Care documented as of this encounter Visit Diagnoses Not on filedocumented in this encounter Care Teams Condenser Winder Relationship Specialty Start Date End Date Vidal Glez M.D. INGA: [phone] [place] [address] PCP - General Internal Medicine 12/31/24 documented as of this encounter
--- OUTSIDE RECORDS SUMMARY | 2025-04-17 00:20 | XMS_ITS | Clinical Summary ---
Author Organization [facility] Address [address] [place] [address] Care Team Providers Care Beamer Helper Name Role Phone Vidal Glez M.D. Primary Care Provider [phone] Source Comments Patient records contain information from all sites at [facility]. For routine questions regarding patient records, call [phone] during business hours, M-F 8:00 AM - 5:00 PM Central Time. Record requests for emergency care only can be directed to [phone] at any time.[facility] Allergies Active Allergy Reactions Criticality Noted Date Comments Chlorthalidone Other (see comments) 11/09/2018 Dehydration, acute kidney injury, cramps. Seems like it may be too potent for her and not a great option for hypertension. Sucrose Seizure High 10/16/2021 Hospitalization needed if too much sugar consumed. Seen at [facility] for this disorder. Sugars, Metabolically Active GI intolerance High 11/21/2019 Nauseated, seizures Medications * This document contains information received from the source organization and may not represent a complete record from that organization. [id number] (Airborne, lysine HCl,) 1,000-50 mg tablet, effervescent effervescent tablets Take 1 tablet by mouth daily. Drop one (1) tablet in 4-6 oz of water, let dissolve and drink. Adults and Children 14 years and older, repeat every 3-4 hours as necessary, up to 2 times per day. Active acetaminophen (TYLENOL) 500 mg tablet Take 2 tablets (1,000 mg total) by mouth every 6 (six) hours as needed for pain or mild pain or score 1-3 of 10. 0 Active promethazine (PHENERGAN) 12.5 mg tablet Take 1 tablet (12.5 mg total) by mouth every 6 (six) hours as needed for nausea or vomiting. 30 tablet 2 Active metoprolol succinate (Toprol XL) 50 mg 24 hr tablet Take 1 tablet (50 mg total) by mouth daily. Do not crush or chew. 90 tablet 3 5 Active ondansetron ODT (Zofran-ODT) 4 mg disintegrating tablet Dissolve 1 tablet (4 mg total) in the mouth every 8 (eight) hours as needed for nausea or vomiting. 40 tablet 3 5 Active atorvastatin (Lipitor) 40 mg tablet TAKE 1 TABLET BY MOUTH EVERY DAY 90 tablet 3 5 Active omeprazole (PriLOSEC) [address] capsule TAKE 1 CAPSULE(40 MG) BY MOUTH DAILY 90 capsule 4 5 Active amLODIPine (Norvasc) 10 mg tablet TAKE 1 TABLET(10 MG) BY MOUTH DAILY 90 tablet 3 5 Active Hospital, Clinic, or Other Facility Administered Medication Ordered Dose Route Frequency Start Date End Date Status lidocaine-EPINEPHrine 1%-1:200,000 injection 3 mL (XYLOCAINE W/EPI) 3 mL inj Once 01/11/2018 Active Active Problems Problem Noted Date Diagnosed Date Pain Wrist Left 12/17/2024 Overview (12/17/2024): Patient has had progressive pain and swelling of her left wrist over the past 2 years. Exam shows soft tissue swelling versus cyst with marked tenderness to palpation extending over the entire dorsum of the wrist. Assessment & Plan (12/31/2024 12:00 PM CDT): X-ray of the left wrist was negative for fracture or malalignment. Does show some ulnar variance. Patient has started applying Voltaren gel with remarkable response and feels like this is working extremely well for her. Advised that she can continue to apply Voltaren gel up to 4 times a day. I do not think we need further workup at this point and will cancel scheduled ultrasound as my suspicion for cyst is quite low. Assessment & Plan (12/17/2024 1:06 PM CDT): - Hand clinic consult - Xray of wrist - US wrist Lightheadedness 12/17/2024 Overview (12/31/2024): Patient recently reported lightheadedness with exertion. 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 She reports that this lightheadedness with exertion only occurs with severe exertion, usually when she is hiking up a mountain. She spends half the year in [place] and is very physically active hiking and rescuing dogs. Lightheadedness will resolve with rest. She also occasionally notices this when it is very hot outside. She does state that she does things that most [id number] could not do and sometimes hikes with younger people who have trouble keeping up with her. She also hikes at altitude, 7-10,000 feet. Assessment & Plan (12/31/2024 12:01 PM CDT): Patient with lightheadedness only with significant exertion, resolves with rest. Very likely this is multifactorial. Workup was initiated with a Holter, 24 hour data notable only for PVC burden 6%. Borderline bradycardia would preclude increasing dose of beta-jose maria for PVC burden. I do not think her borderline bradycardia would explain her symptoms. Patient will return extended monitor today so expect some additional data will be reported. She also had a stress echocardiogram which was very reassuringly normal. She is a never smoker and has no known lung disease. Given the overall picture I think she is a very physically active 84-year-old with mild, non limiting symptoms and I do not think we need to pursue further workup at this point. I considered pulmonary function testing or CT chest but she is not reporting any sort of dyspnea so I think these would likely be low yield. Similarly, she does not have any actual chest pain or shortness of breath. I gave her precautions and asked her to monitor her symptoms, if they are change in her progressive she should return and I would consider additional workup at that time. 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 Smith was noted to have declining renal function. A small monoclonal IgM lambda was found. Repeat studies done 12/2023 showed the same. Hematology e-consult was placed. Hematology suggest doing studies annually, being cognizant of the diagnosis of MGUS and be on the look-out for signs of multiple myeloma and AL amyloidosis. The to do list at the time of assessments would include the following: CBC, calcium, creatinine, alkaline phosphatase Serum immunoglobulin free light chains (FLC) MQUANT (Dubon test, but elsewhere serum protein electrophoresis and immunofixation) Urinalysis with 24 hour protein estimate Review of systems for signs of multiple myeloma (anemia, hypercalcemia, bone pain, or renal insufficiency) Review of systems for signs of AL amyloidosis (weight loss, jaw claudication, periorbital edema, periorbital purpura, orthostasis, PND, orthopnea, syncope, paresthesias, change in bowel habit, bleeding, and lower extremity edema). Assessment & Plan (12/17/2024 12:38 PM CDT): - No evidence of progression of MGUS based on symptoms but labs have not been completed (already ordered by nephrology) - We have scheduled labs and Nephrology follow up that has already been ordered. Pancreatitis Chronic 01/25/2024 Overview (01/25/2024): In November 2022 the patient noted severe nausea and epigastric pain with difficulty tolerating PO intake prompting her to report to a local ED. This was in the setting of chronic nausea occurring approximately 4 times per week and lasting about 4 hours that would occasionally wake her from sleep, not associated with food, activity, position, or any pain (see fructose malabsorption problem). She presented to [facility] on 12/02/22 for this issue an had a CT scan that noted a pancreatic tail cyst. GI recommended further evaluation with an MRCP which was performed on 09/30/23. The MRCP noted near complete resolution of the cyst with residual chronic pancreatitis surrounding the cyst. She has been prescribed ondansetron 4 mg ODT which she puts under tongue at the instant she becomes nauseous. If that does not byron the symptoms, she has Phenergan which will usually make her quite lethargic for a day but prevents her from going to the hospital. Assessment & Plan (01/25/2024 5:43 PM CDT): I considered repeating the MRCP with a 6 month interval (would be march of this year) but the patient would like to hold off on additional testing at this time due to the discomfort of the procedure. She is not requiring pain medication, is able to tolerate PO, and her nausea is well controlled with zofran. - RTC in 2 months for consideration of MRCP Pain Leg Right 01/25/2024 Overview (01/25/2024): Patient had a cramp 4 weeks ago and has had muscular leg pain that has been gradually improving over the past several weeks. 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 This was in the setting of chronic nausea occurring approximately 4 times per week and lasting about 4 hours that would occasionally wake her from sleep, not associated with food, activity, position, or any pain (see fructose malabsorption problem). She presented to [facility] on 12/02/22 for this issue an had a CT scan that noted a pancreatic tail cyst. GI recommended further evaluation with an MRCP which was performed on 09/30/23. The MRCP noted near complete resolution of the cyst with residual chronic pancreatitis surrounding the cyst. She has no epigastric pain today. 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 Pathology showed squamous cell carcinoma in-situ. According to path report, margins of biopsy were clean. Assessment & Plan (04/02/2022 4:37 PM CDT): Patient was told by Dermatology that no further follow-up was required Pain Low Back Unspecified 02/18/2022 Overview (02/18/2022): Patient has been having low back pain for approximately one month. It began suddenly while she was working. It is present only when she is sitting. It is on her right side. It is not associated with neuropathic pain, numbness, weakness, tingling. Naproxen prescribed at urgent care did not relieve pain. She has seen PT but would like referral to [facility] Assessment & Plan (02/18/2022 5:25 PM CDT): - Voltaren gel for symptomatic relief - PT ordered - Follow up in 6 months or message if pain does not improve Advanced Care Planning 01/07/2021 Overview (01/07/2021): The patient has completed a living will and has this at home Assessment & Plan (01/07/2021 12:32 PM CDT): -I asked patient to bring in her living will at time of her next visit and we will upload into our chart PreDiabetes 01/07/2021 Overview (01/25/2024): Lab Results Component Value Date HGBA1C 6.1 (H) 10/25/2022 Hemoglobin A1c remained stable in the 6s Assessment & Plan (12/17/2024 12:26 PM CDT): - repeat A1c and fasting glucose in 1 year Assessment & Plan (01/25/2024 5:33 PM CDT): - repeat A1c and fasting BMP in 1 year Assessment & Plan (10/25/2022 8:32 AM CDT): Repeat HgbA1c and fasting BMP today. Assessment & Plan (02/18/2022 5:16 PM CDT): Fasting glucose < 91 is reassuring. HgbA1c can be falsely elevated with iron deficiency anemia - patient has not had CBC in several years. - Add on CBC ordered, if anemic will obtain iron studies - Repeat A1c in three months - Provided information on mediterranean diet - Discussed reducing sweets intake Assessment & Plan (01/07/2021 12:28 PM CDT): -Advised Mediterranean diet; continue exercising 3-4 times per week -Annual A1c and fasting glucose Keratosis Actinic 01/06/2021 Overview (02/18/2022): Last skin check was on 08/04/2021. No worrisome signs of for skin cancer. Underwent cryotherapy for 6 actinic keratoses followed by 10 day course of topical 5-FU. Annual skin exam recommended Assessment & Plan (02/18/2022 5:21 PM CDT): - Lesions on face have returned - Derm appointment ordered Keratosis Seborrheic 01/06/2021 General Medical Examination Adult 01/06/2021 Overview (01/25/2024): -Breast Cancer Screening: Patient had normal mammogram on 02/19/2022. Mammogram every 2 years (next 01/2024). -Osteoporosis Screening: see osteopenia problem -Colon Cancer Screening: Normal colonoscopy 10/20/2021 -Tobacco use: Never -Lung Cancer Screening: Does not meet criteria -Dyslipidemia Screenig: See separate problem -Obesity Screening: BMI 24.90 -Immunizations: Up to Date -Health Promotion: I have discussed recommendations for age-appropriate preventative health including limiting alcohol consumption, abstaining from tobacco, increasing physical activity, and making healthy diet choices. Assessment & Plan (02/18/2022 5:15 PM CDT): -Mammogram ordered -No further colonoscopies indicated Assessment & Plan (01/06/2021 5:09 PM CDT): We discussed age- and gender-appropriate health maintenance and preventative services as per institutional guidelines. A. Fasting glucose: 85 mg/dL, today B. Lipids: TC 160, TG 187, HDL 38, LDL 85 C. Cancer screening: i. Colon: Last colonoscopy in 2017 which was reportedly normal. She is currently outside screening window. ii. Breast: Mammogram on 07/2019 was normal. She states she will get a mammogram next year at an outside facility. D. Vaccines: i. Influenza: up to date ii. Tetanus: up to date, due 2021 iii. Pneumococcus: up to date iv. Herpes zoster: She received one dose of Zostavax. She has not had Shingrix V. SARS-CoV2: obtained two dose series of mRNA vaccine in June 2020 E. Lifestyle: We discussed in detail the importance of a healthy lifestyle including an appropriate body weight, diet, exercise, abstinence from tobacco products, and limiting alcohol intake. Regular dental and eye exams recommended. F. Safety: We discussed seatbelt use, smoke detectors, and the use of sunscreen. 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 Smith had pain in her left hip for several years with evidence of advanced degeneration from imaging. She tried physical therapy and steroid injections in the past with limited results. In October 2019 she underwent a left total hip replacement without complication. She has not experienced any tenderness, local swelling, purulence, bleeding from incision. She continues to feel weak along her left leg and uses a walker to aid in mobility; however, overall her mobility is improving with minimal pain. She is able to accomplish she her ADLs and IADLs. Regurgitation Mitral 11/14/2019 Overview (04/02/2022): Patient says that she has had a m urmur the doctors were able to hear for most of her life. On exam on 02/18/2022, I noticed that she had a very loud systolic murmur that was able to be auscultated from every area that was loudest over the mitral area. Also found that she had a bounding JVP. These findings were concerning for mitral regurgitation and tricuspid regurgitation. Given these findings, she was referred for a transthoracic ultrasound which demonstrated [id number] mitral and tricuspid regurg with no increased left ventricular size. She remains asymptomatic: she does not have symptoms concerning for heart failure including orthopnea, PND, dyspnea with exertion or rest, syncope. She does say that she gets a little bit dizzy when she is walking up the hill in her [place] when she is very hot and dehydrated. She does not get dizzy with exertion under normal circumstances. Assessment & Plan (10/25/2022 11:42 AM CDT): Patient will need annual exams. If there is any change her exam or she develops symptoms we will need to repeat her TTE to assess for worsening mitral regurgitation and we could consider consulting Cardiology for consideration of mitral clip. Patient was counseled to let us know if she develops any symptoms of heart failure Assessment & Plan (04/02/2022 4:32 PM CDT): She will need annual exams. If there are any changes in exam, or if she develops symptoms at any time, she will need a repeat TTE to assess for worsening mitral regurgitation. Cardiology consult could be considered after repeating TTE. Patient was counseled to Christina know if she develops any symptoms of heart failure. Assessment & Plan (02/18/2022 5:20 PM CDT): -Echocardiogram ordered -Cards consult pending echo Chronic Kidney Disease (CKD) , Stage 3b Glomerular Filtration Rate (GFR) 30 To 44 11/14/2019 Overview (12/17/2024): Patient has had progressive renal decline in the setting of MGUS, pre-diabetes, and generally well controlled hypertension. She follows with nephrology and we will get her rescheduled with them after today's visits. Assessment & Plan (12/17/2024 12:40 PM CDT): - Management per nephrology Assessment & Plan (01/25/2024 5:48 PM CDT): Likely hypertensive nephropathy but will work up for multiple myeloma given small M-spike last year. 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 For many years she has had episodes of nausea without emesis that she did think was somewhat associated with sugar. Unfortunately, over the past several weeks the frequency and duration of these symptoms has drastically increased with episodes now occurring approximately 4 times per week and lasting about 4 hours. These episodes will occasionally wake her from sleep. They are not associated with food, activity, or position. The symptoms are not accompanied by any sort of pain. She presented to [facility] on 12/02/22 for this issue an had a CT scan that was largely unremarkable except for a few incidental findings. She brought the disk for this exam with her today. She has been prescribed ondansetron 4 mg ODT which she puts under tongue at the instant she becomes nauseous. If that does not byron the symptoms, she has Phenergan which will usually make her quite lethargic for a day but prevents her from going to the hospital. Of note she was started on a PPi at the time these symptoms began, which has been maintained since. Assessment & Plan (12/17/2024 12:33 PM CDT): Symptoms have been inadequacy controlled despite the therapies listed above resulting in 2 ED visits in the last year. - Referral to GI to guide additional workup Assessment & Plan (12/21/2022 12:11 PM CDT): For symptom control, I told the patient that she may take the zofran up to daily but if she finds that she is needing it more than daily I would like to hear back from her. I will obtain an over-read of her outside CT scan. Differential is broad and could include uremia, transaminitis, infection, malignancy, gastroparesis, multiple myeloma, among others. I will start by obtaining some labs and if unrevealing will consider an EGD and/or a fat pad biopsy depending on the patient's symptoms and results . Assessment & Plan (10/25/2022 11:42 AM CDT): Patient has not had the nausea/vomiting since she started limiting her fructose. Patient will continue this diet. Patient has not needed Zofran or Compazine recently. Assessment & Plan (02/18/2022 5:22 PM CDT): The exact diagnosis here is unclear. He does not have cyclical vomiting syndrome. Appears to be an adverse reaction to sugars, although she tolerates starches very well. She seems to have a particular ly poor response to fruit so fructose may be responsible. She has an excellent strategy in place for managing symptoms prophylactically and should continue same -continue her zofran and Phenergan p.r.n. - Reduced dose of phenergan to 12.5mg to limit lethargy Assessment & Plan (01/07/2021 12:31 PM CDT): The exact diagnosis here is unclear. He does not have cyclical vomiting syndrome. Appears to be an adverse reaction to sugars, although she tolerates starches very well. She seems to have a particularly poor response to fruit so fructose may be responsible. She has an excellent strategy in place for managing symptoms prophylactically and should continue same -continue he on than strong and Phenergan p.r.n. Primary Osteoarthritis Hip Left 10/31/2018 Osteopenia 10/31/2018 Overview (12/17/2024): DEXA on 01/07/2021 shows evidence of osteopenia but not osteoporosis. Note that the report generated FRAX score for 10 year probability of Major Osteoporotic Fracture is 13.4 % and Hip Fracture 3.3%. However when I input these results directly into the online proprietary FRAX tool, her 10 year risk of hip fracture is 2.8%, which is below the guideline directed threshold for initiation of a bisphosphonate. Assessment & Plan (12/17/2024 12:25 PM CDT): - Consider recheckign DEXA next year - Continue Vitamin D (1000IU) daily - 4 servings of calcium rich foods daily Assessment & Plan (01/25/2024 5:31 PM CDT): - Continue Vitamin D (1000IU) daily - 4 servings of calcium rich foods daily Assessment & Plan (10/25/2022 8:12 AM CDT): -Continue Calcium and Vitamin D - Target: Total intake of 1200 mg calcium daily and 600 to 1,000 units Vitamin D daily Assessment & Plan (02/18/2022 5:15 PM CDT): -Prescribed Calcium and Vitamin D Assessment & Plan (01/07/2021 12:32 PM CDT): -continue calcium and vitamin-D supplementation -Repeat screening with DEXA scan Hypertension Essential Primary 05/21/2011 Overview (12/17/2024): Blood pressure goal: <130/80. Hypertension since at least 2006, and HTN diagnosis year: 2006 (possibly earlier) HTN stage: elevated (120-129/<80) - Initial HTN tests (CBC, BMP, TSH, EKG ) completed? Yes - Comments: Patient has CKD Blood pressure readings: well controlled (goal 130/80) BP Readings from Last 3 Encounters: 12/17/24 131/65 03/02/24 135/71 02/01/24 113/67 Home blood pressure cuff validated : No Home blood pressure measurements: Patient does not take home BPs Current HTN regimen: Metoprolol succinate 50mg daily Amlodipine 10mg daily Counseling regarding DASH diet, reduced alcohol intake, weight loss if needed, and 90-150 minutes of aerobic exercise weekly completed Prior medications trialed & discontinued with reasons why: She was trialed on Chlorthalidone in 2019 but developed an SALVADOR and it was discontinued. Concerns for secondary hypertension: No Assessment & Plan (12/17/2024 12:31 PM CDT): Blood pressure very close to goal today (systolic 131). She is bradycardic and has exertional light headedness (see lightheadedness problem). Patient will return to clinic early next year to meet her new PCP and consider modifying antihypertensive regimen pending results of cardiac workup. -Recheck BP at next visit -Patient follows with nephrology for CKD Assessment & Plan (01/25/2024 5:34 PM CDT): We will consider switching from amlodipine to lisinopril if there is proteinuria (pending urinalysis). Assessment & Plan (10/25/2022 8:37 AM CDT): - Continue Amlodipine 10mg and Metoprolol succinate 50mg daily - If further adjustments needed, favor switching to lisinopril from metoprolol and titration to maximum tolerated dose Assessment & Plan (01/06/2021 5:13 PM CDT): -Continue Amlodipine 10mg and Metoprolol succinate 50mg od -If further adjustments made would favor switching Metoprolol to lisinopril and titrating to maximum tolerated dose. Did not tolerate Chlorthalidone previously -Blood pressure goal is <130/80mmHg Hyperlipidemia 10/09/2008 Overview (10/25/2022): Lipids 01/07/2021 show a total cholesterol of 181, triglycerides 188, HDL 36, LDL 107, which is stable from 2 yrs prior. She is currently on a high-intensity statin, atorvastatin 40 mg daily. ASCVD can't be calculated due to age >79. Assessment & Plan (12/17/2024 12:25 PM CDT): - continue atorvastatin 40 mg daily Assessment & Plan (01/25/2024 5:31 PM CDT): - continue atorvastatin 40 mg daily Assessment & Plan (10/25/2022 8:28 AM CDT): - Continue atorvastatin 40mg daily Assessment & Plan (02/18/2022 5:15 PM CDT): - Provided information on mediterranean diet - continue atorvastatin 40mg daily Assessment & Plan (01/07/2021 12:27 PM CDT): -Despite advancing age favor continuing high-intensity statin as she has tolerated this for many years without issue and I anticipate a life-expectancy of >10 years -Discussed mediterranean diet and given handouts; I think this is an area that would help her A1c and LDL Resolved Problems Problem Noted Date Diagnosed Date Resolved Date Post Operative Nausea/Vomiting 11/14/2019 01/07/2021 Encounters Date Type Department Care Team Description 04/16/2025 Results Follow-Up Division of Community Internal Medicine, [facility] in [place], [place] [address] [place] [phone] Damian Yu M.D. CBC with Differential, Blood, Alkaline Phosphatase, Quantitative M-protein Study, Additional followed-up results: 6 04/15/2025 2:20 PM CDT Comprehensive Visit Division of Gastroenterology in [place], [place] [address] [place] [address] Simba Fernandes M.D. Nacho Browne M.B.B.S., M.S. Cyst Pancreas (Primary Dx) 04/15/2025 10:33 AM CDT - 04/15/2025 11:59 PM CDT Hospital Encounter Department of Laboratory Medicine and Pathology, [facility] in [place], [place] [address] [place] [address] Damian Yu M.D. General Medical Examination Adult Discharge Disposition: Home or Self Care 04/15/2025 10:33 AM CDT - 04/15/2025 11:59 PM CDT Hospital Encounter Department of Laboratory Medicine and Pathology, [place], [place] [address] [place] [phone] Damian Yu M.D. General Medical Examination Adult; Gammopathy Monoclonal Nonspecific Discharge Disposition: Home or Self Care 04/10/2025 10:00 AM CDT Clinical Communication Virtual Review in [place], [place] [address] [place] [address] Pre-visit Intake 03/14/2025 Clinical Communication Division of [facility], [place], [place] [address] [place] [phone] Damian uY M.D. Lab Work Clarification 03/14/2025 Clinical Communication Division of [facility], [place], [place] [address] [place] [phone] Vidal Glez M.D. health maintenance orders 03/02/2025 Refill Division of [facility], [address] [phone] Simba Fernandes M.D. Med Refill 01/29/2025 Refill Division of [facility], [place], [place] [address] [place] [phone] Simba Fernandes M.D. Med Refill 01/22/2025 Refill Division of [facility], [place], [place] [address] [place] [phone] Simba Fernandes M.D. Med Refill from Last 3 Months Immunizations Immunization Administration Dates Next Due HZV (ZOSTAVAX) 06/27/2009 Influenza Split 03/27/2017, 4,04/26/2013,2011 Influenza TIV (IM) 03/25/2020 Influenza high dose QV(65 ye ars or older) (PF) 04/07/2023,04/22/2022 Influenza, Injectable, Mdck, Quadrivalent 04/27/2018 Influenza, Unspecified 02/25/2015 PCV13 05/27/2014 PPSV23 03/27/2010 RSV: respiratory syncytial v irus (ABRYSVO) bivalent vaccine 04/14/2023 RZV (SHINGRIX) 04/06/2021,,10/23/2019(Deferr ed: Patient Refused) SARS-COV-2 (COVID-19) - MODE RNA (12 YEARS AND OLDER) Fall Seasonal 04/07/2023 SARS-COV-2 (COVID-19) - PFIZ ER (Discontinued)(12 years or older) 02/25/2021,08/12/2020,07/22/2020 SARS-COV-2 (COVID-19) - PFIZ ER BIVALENT TS(Discontinued)(12 YEARS OR OLDER) 04/02/2022 Tdap 11/03/2021,02/26/2015,05/25/2012 influenza trivalent high dos e (HD)(PF) 05/04/2024,04/01/2021,04/07/2019,2016,06/07/2016,02/25/2015,04/13/2014,1 ,05/21/2011 influenza trivalent vaccine (6 months and older)(PF) 04/06/2012 influenza vaccine quad (FLUZONE/FLUARIX) (6 months and older)(PF) 03/25/2020,04/07/2019,04/27/2018,2016,06/07/2016,03/21/2015,02/25/2015,1 ,04/26/2013,04/06/2012, 011 Family History Relation Name Status Comments Father unknown Maternal Grandmother Anika Mother Milvia Social History Tobacco Use Types Packs/Day Years Used Date Smoking Tobacco: Never Passive Smoke Exposure: Never Smokeless Tobacco: Never Alcohol Use Standard Drinks/Week Comments Never 0 (1 standard drink = 0.6 oz pur e alcohol) [facility] Utilities Answer Date Recorded In the past 12 months has th e [employer], [employer], or water [employer] threatened to shut off services in your [...] situation today? I have a [facility] place to live 12/17/2024 Education Answer Date Recorded What is the highest level of school you have completed or the highest degree you have received? Associate degree: occupational, technical, or vocational program 04/02/2022 Comments No Sex and Gender Information Value Date Recorded Sex Assigned at Female 01/11/2018 10:39 AM CDT Legal Sex Female 7:52 AM TOP AND TRIM WORKER Gender Identity Female 01/11/2018 10:39 AM CDT Sexual Orientation Straight 01/11/2018 10 :39 AM CDT Last Filed Vital Signs Vital Sign Reading Time Taken Comments Blood Pressure 113/68 12/31/2024 10:45 AM CDT Pulse 57 12/31/2024 10:45 AM CDT Temperature 36.8 C (98.2 F) 11/23/2019 7:55 AM CDT Respiratory Rate 18 11/23/2019 7:55 AM CDT Oxygen Saturation 95% 11/23/2019 7:55 AM CDT Inhaled Oxygen Concentration - - Weight 55.8 kg (123 lb 0.3 oz) 04/15/2025 2:19 P M CDT Height 159 cm (5' 2.6) 04/15/2025 2:19 PM CDT Body Mass Index 22.07 04/15/2025 2:19 PM CDT Plan of Treatment Upcoming Encounters Date Type Department Care Team (Late st Contact Info) Description 06/06/2025 11:45 AM TOP AND TRIM WORKER Appointment Department of Radiology, [facility], in [place], [place] [address] [place] [address] Nahco Browne M.B.B.S., M.S. [address] [place] [address] Discharge Disposition: Home or Self Care Health Maintenance Due Date Last Done Comments COVID-19 Vaccine (2024-07 6 season) 2025 03/16/2025, 05/29/2024, 04/07/2023, Additional history exists Urinalysis 10/14/2025 04/15/2025, 12/27, 12/21/2022, Additional history exists Calcium Level 12/17/2025 12/17/2024, 12/27, 01/25/2024, Additional history exists Creatinine Level (Kidney Function Test) 12/17/2025 12/17/2024, 01/25/2024, 01/25/2024, Additional history exists Fasting Glucose for Diabetes Screening 12/17/2025 12/17/2024, 12/17/2024, 01/25/2024, Additional history exists Visit: Chronic Disease, age 18+ 12/17/2025 12/17/2024 Visit: Medicare Annual Wellness 12/18/2025 12/17/2024 Office Visit for Blood Pressure Check / Re-check 12/31/2025 12/31/2024 Alkaline Phosphatase Level 04/15/202604/15, 01/25/2024, 12/21/2022, Additional history exists CBC Level 04/15/2026 04/15/2025, 12/27, 12/21/2022, Additional history exists Serum Protein Electrophoresi s (SPEP) 04/15/2026 04/15/2025, 01/25/2024, 12/21/2022 Urine Albumin 04/15/2026 04/15/2025, 11/26, 01/07/2021 DTaP,Tdap,and Td Vaccines (4 - Td or Tdap) 11/04/2031 11/03/2021, 02/26/2015, 05/25/2012 Pneumococcal vaccine (50+ years) Completed 05/27/2014, 03/27/2010 Zoster Vaccines Completed 04/06/2021, 12/25, 06/27/2009 RSV vaccine - (32-3 6 weeks) or 50+ years Completed 04/14/2023 Depression Screening (Annual PHQ-2) Completed 12/17/2024, 12/17/2024 Fall Risk Screen (Annual) Completed 12/17/2024 Influenza Vaccine Completed 03/16/2025, , 04/07/2023, Additional history exists IPV Vaccines Aged Out No longer eligi ble based on patient's age to complete this topic Medical Devices Implanted Type Area Small Brake Form Operator Device Identifier Shelf Expiration Date Model / Serial / Lot Scrw Pnn Acet Ft 6.5x20 - [id number] Implanted:Qty : 1 on 11/21/2019 by Marshall Gomez M.D. at [facility] Hardware e.g. pins/screws/ rods Left: Hip Depuy Synthes 07/27/2029 0 / / [id number] Shll Acet Pnn 52 - [id number] Implanted:Qty : 1 on 11/21/2019 by Marshall Gomez M.D. at [facility] Hip Implant Left: Hip Depuy Synthes 07/27/2029 2 / / [id number] Lnr Alt 0d 36x52 - [id number] Implanted:Qty : 1 on 11/21/2019 by Marshall Gomez M.D. at [facility] Hip Implant Left: Hip Depuy Synthes 07/27/2024 2 / / [id number] Hip Stm Crl Sz10 140 - [id number] Implanted:Qty : 1 on 11/21/2019 by Marshall Gomez M.D. at [facility] Hip Implant Left: Hip Depuy Synthes 03/26/2024 [id number] / / [id number] Fem Hd Art Ez Crmc +1.5x36 - [id number] Implanted:Qty : 1 on 11/21/2019 by Marshall Gomez M.D. at [facility] Hip Implant Left: Hip Depuy Synthes 04/26/2024 0 / / [id number] Procedures Procedure Name Priority Date/Time Associated Diagnosis Comments MICROSCOPIC MANUAL Routine 04/15/2025 11 :06 AM CDT DIPSTICK, U Routine 04/15/2025 11:06 AM CDT PH, U Routine 04/15/2025 11:06 AM CDT OSMOLALITY, U Routine 04/15/2025 11:06 AM CDT URINALYSIS WITH MICROSCOPIC Routine 04/15/2025 11:06 AM CDT General Medical Examination Adult ALBUMIN, RANDOM, U Routine 04/15/2025 11 :06 AM CDT General Medical Examination Adult QUANTITATIVE M-PROTEIN STUDY, S Routine 04/15/2025 10:59 AM CDT Gammopathy Monoclonal Nonspecific ALKALINE PHOSPHATASE, S/P Routine 04/15/2025 10:59 AM CDT General Medical Examination Adult CBC WITH DIFFERENTIAL, B Routine 04/15/2025 10:59 AM CDT General Medical Examination Adult Gammopathy Monoclonal Nonspecific HEMOGLOBIN A1C, B Routine 12/17/2024 8:3 5 AM CDT Chronic Kidney Disease (CKD), Stage 3a Glomerular Filtration Rate (GFR) 45 To 59 (HCC) Annual Medicare Examination Return BASIC METABOLIC PANEL, S/P Routine 12/17/2024 8:35 AM CDT Chronic Kidney Disease (CKD), Stage 3a Glomerular Filtration Rate (GFR) 45 To 59 (HCC) Annual Medicare Examination Return from Last 3 Months or Most Recently Relevant to Health Maintenance Results * Dipstick, Urine (04/15/2025 11:06 AM CDT) [...] M.D. LAB URINE ORDERAB LES Final Result [facility] [address] [place] [address], [facility] [address] [place] [address] * (ABNORMAL) Microscopic Manual (04/15/2025 11:06 AM [...] ORDERAB LES Final Result Performing Organization Address City/[facility]/Z[place] [address] * pH, Urine (04/15/2025 11:06 AM CDT) pH, U 5.6 4.5 - 8.0 04/15/2025 2:1 5 PM CDT DTL Urine 04/15/2025 11:0 6 AM CDT 04/15/2025 1:44 PM CDT Damian Yu M.D. LAB URINE ORDERAB LES Final Result Performing Organization Address City/[facility]/[place] [address] * (ABNORMAL) Albumin, Random, Urine (04/15/2025 11:06 AM CDT) Albumin, Random, U 82.7 mg/L 2024 3:01 PM CDT DTL Comment: ----ADDITIONAL INFORMATION---- This test has been modified from the gasoline power shovel operator's instructions. Its performance characteristics were determined by [facility] in a manner consistent with CLIA requirements. This test has not been cleared or approved by the U.S. Food and Drug Administration. Creatinine 310 mg/dL 04/15/2025 2:35 PM CDT DTL Albumin/Creatinine Ratio 27(H) <25 mg/g 04/15/2025 3:01 PM CDT DTL Urine (Urine, Midstream) 04/15/2025 11:06 AM CDT 04/15/2025 1:56 PM CDT Damian Yu M.D. LAB URINE ORDERAB LES Final Result Performing Organization Address [facility]/ZIP Co de Phone Number [facility] [address] [place] [address] * Osmolality, Urine (04/15/2025 11:06 AM CDT) Osmolality, U 647 150 - 1150 mOsm/kg 04/15/2025 2:15 PM CDT DTL Urine 04/15/2025 11:0 6 AM CDT 04/15/2025 1:44 PM CDT Damian Yu M.D. LAB URINE ORDERAB LES Final Result Performing Organization Address [facility] de Phone Number [facility] [address] [place] [address] * (ABNORMAL) Urinalysis, with Microscopic: Urine, Midstream [...] M.D. LAB URINE ORDERAB LES Final Result [facility] [address] [place] [address], [place] DTL [facility] [address] [place] [address] * (ABNORMAL) Quantitative M-protein Study (04/15/2025 10:59 [...] developed and its performance characteristics determined by [facility] in a manner consistent with CLIA requirements. This test has not been cleared or approved by the U.S. Food and Drug Administration. Blood (Blood, Venous) 04/15/2025 10:59 AM CDT 04/15/2025 4:37 PM CDT Narrative [facility] - 04/16/2025 1:31 PM CDT Specimen Information: Specimen ID: [id number] Specimen Type: Blood Specimen Collection Start Date: 04/15/2025 10:59 AM Specimen Received Date: 04/15/2025 4:37 PM Specimen ID: [id number] Specimen Type: Blood Specimen Collection Start Date: 04/15/2025 10:59 AM Specimen Received Date: 04/15/2025 6:12 PM Damian Yu M.D. LAB BLOOD ADD-ON Final Result [facility] [address] [place] [address] [facility] [address] [place], [place] [phone] [place] [address] [address] [facility] [place] [address] * (ABNORMAL) CBC with Differential, Blood (04/15/2025 10:59 AM CDT) [facility] Hemoglobin 12.9 11.6 - 15.0 g/dL 04/15/2025 [...] Yu M.D. LAB BLOOD ADD-ON Final Result [facility] [address] [place] [address], [facility] DTL [facility] [address] [place] [address] [facility] [address] [place] [address] * (ABNORMAL) Alkaline Phosphatase (04/15/2025 10:59 AM CDT) Alkaline Phosphatase, S 109(H) 35 - 104 U/L 04/15/2025 12:04 PM CDT DTL Blood (Blood, Venous) 04/15/2025 10:59 AM CDT 04/15/2025 11:27 AM CDT us Damian Yu M.D. LAB BLOOD ADD-ON Final Result [facility] - [address] [address] * (ABNORMAL) Hemoglobin A1c (12/17/2024 8:35 AM CDT) Pathologist [facility] Hemoglobin A1c, B 6.0(H) 4.0 - 5.6 % 12/17/2024 9:40 AM CDT DTL Comment: Hemoglobin A1c values of 5.7-6.4 percent indicate an increased risk for developing diabetes mellitus. In diabetic patients, HbA1c goals should be discussed with healthcare provider. Blood (Blood, Venous) 12/17/2024 8:35 AM CDT 12/17/2024 8:52 AM CDT us Simba Fernandes M.D. LAB BLOOD ADD-ON Final Resu lt [address] [place] [address] * (ABNORMAL) Basic Metabolic Panel (12/17/2024 8:35 AM CDT) [facility] Potassium, S 4.8 3.6 - 5.2 mmol/L 12/17/2024 9:58 AM CDT DTL Sodium, S 141 135 - 145 mmol/L 12/17/2024 9:58 AM CDT DTL Chloride, S 106 98 - 107 mmol/L 12/17/2024 9:58 AM CDT DTL Bicarbonate, S 23 22 - 29 mmol/L 12/17/2024 9:58 AM CDT DTL Anion Gap 12 7 - 15 12/17/2024 9:58 AM CDT DTL BUN (Blood Urea Nitrogen), S 29(H) 6 - 21 mg/dL 12/17/2024 9:58 AM CDT DTL Creatinine 1.56(H) 0.59 - 1.04 mg/dL 12/17/2024 9:58 AM CDT DTL Estimated GFR (eGFR) 33(L) >=60 mL/min/BSA 12/17/2024 9:58 AM CDT DTL Comment: Estimated GFR calculated using the 2020 CKD_EPI creatinine equation. Calcium, Total, S 9.6 8.8 - 10.2 mg/dL 12/17/2024 9:58 AM CDT DTL Glucose, S CANCELED mg/dL 12/17/2024 9:21 AM CDT DTL Comment: Duplicate test request. Result canceled by the ancillary. Blood (Blood, Venous) 12/17/2024 8:35 AM CDT 12/17/2024 9:21 AM CDT us Simba Fernandes M.D. LAB BLOOD ADD-ON Final Resu lt [facility] [address] [place] [address], [place] DTL [facility] [address] [place] [address] from Last 3 Months or Most Recently Relevant to Health Maintenance Insurance MEDICARE [facility] Advance Directives For more information, please contact: [phone] Documents on File Type Date Recorded Patient Psychiatric Nursing Aide Expl anation Advance Directives 02/23/2022 11:24 AM Ramu Smith HCPOA/ADVOCATE/AGENT/R EPRESENTATIVE/SURROGAT E * Full Code (Latest Code Status on File) Date Activated Date Inactivated Comments 11/21/2019 12:30 PM 11/23/2019 11:46 AM Question Answer Comments Full Code: Discussed Healthcare Agents on File Name Relationship Healthcare Agent Relationship Communication Ramu Smith Spouse Health Care Agent Tatiana Sarah Daughter First Alternate Health Care Agent Care Teams Beamer Helper Relationship Specialty Start Date End Date Vidal Glez M.D. [address] [place] [address] PCP - General Internal Medicine 12/31/24
--- OUTSIDE RECORDS SUMMARY | 2025-04-17 00:21 | XMS_ITS | Encounter Summary ---
Author Organization [facility] Address [address] [place] [address] Care Team Providers Care Chicken Cutter Name Role Phone Vidal Glez M.D. Primary Care Provider [phone] Reason for Visit * Reason Onset Date Comments health maintenance orders 03/14/2025 Encounter Details Date Type Department Care Team (Latest Contact Info) Description 03/14/2025 Clinical Communication Division of Community Internal Medicine, [facility], in [place], [place] [address] [place] [phone] Vidal Glez M.D. [address] [place] [address] health maintenance orders Social History Tobacco Use Types Packs/Day Years Used Date Smoking Tobacco: Never Passive Smoke Exposure: Never Smokeless Tobacco: Never Alcohol Use Standard Drinks/Week Comments Never 0 (1 standard drink = 0.6 oz pur e alcohol) [facility] Utilities Answer Date Recorded In the [...] your living situation today? I have a [facility] place to live 12/17/2024 Education Answer Date Recorded What is the highest level of school you have completed or the highest degree you have received? Associate degree: occupational, technical, or vocational program 04/02/2022 Comments No Sex and Gender Information Value Date Recorded Sex Assigned at Female 01/11/2018 10:39 AM CDT Legal Sex Female 7:52 AM REHABILITATION NURSE Gender Identity Female 01/11/2018 10:39 AM CDT Sexual Orientation Straight 01/11/2018 10 :39 AM CDT documented as of this encounter Plan of Treatment Upcoming Encounters Date Type Department Care Team (Late st Contact Info) Description 06/06/2025 11:45 AM REHABILITATION NURSE Appointment Department of Radiology, [facility], in [place], [place] [address] [place] [address] Nacho Browne M.B.B.S., M.S. [address] [place] [address] Discharge Disposition: Home or Self Care documented as of this encounter Results * (ABNORMAL) Urinalysis, with Microscopic: Urine, Midstream [...] 11:06 AM CDT 04/15/2025 1:43 PM CDT Damian Yu M.D. LAB URINE ORDERAB LES Final Result [place] [address] [place] [address], [facility] [address] [place] [address] * (ABNORMAL) Albumin, Random, Urine (04/15/2025 11:06 AM CDT) Albumin, Random, U 82.7 mg/L 2024 3:01 PM CDT DTL Comment: ----ADDITIONAL INFORMATION---- This test has been modified from the stock driver's instructions. Its performance characteristics were determined by [facility] in a manner consistent with CLIA requirements. This test has not been cleared or approved by the U.S. Food and Drug Administration. Creatinine 310 mg/dL 04/15/2025 2:35 PM CDT DTL Albumin/Creatinine Ratio 27(H) <25 mg/g 04/15/2025 3:01 PM CDT DTL Urine (Urine, Midstream) 04/15/2025 11:06 AM CDT 04/15/2025 1:56 PM CDT Damian Yu M.D. LAB URINE ORDERAB LES Final Result [facility] [address] [place] [address], [facility] DT[facility]ly [facility] [address] [place] [address] * (ABNORMAL) Quantitative M-protein Study (04/15/2025 10:59 [...] developed and its performance characteristics determined by [facility] in a manner consistent with CLIA requirements. This test has not been cleared or approved by the U.S. Food and Drug Administration. Blood (Blood, Venous) 04/15/2025 10:59 AM CDT 04/15/2025 4:37 PM CDT Narrative [facility] - 04/16/2025 1:31 PM CDT Specimen Information: Specimen ID: [id number] Specimen Type: Blood Specimen Collection Start Date: 04/15/2025 10:59 AM Specimen Received Date: 04/15/2025 4:37 PM Specimen ID: [id number] Specimen Type: Blood Specimen Collection Start Date: 04/15/2025 10:59 AM Specimen Received Date: 04/15/2025 6:12 PM Damian Yu M.D. LAB BLOOD ADD-ON Final Result [facility] [address] [place] [address] [facility] [address] [place] [address] [facility] [address] [place] [address] [place] [address] * (ABNORMAL) Alkaline Phosphatase (04/15/2025 10:59 AM CDT) Pathologist [facility] Alkaline Phosphatase, S 109(H) 35 - 104 U/L 04/15/2025 12:04 PM CDT DTL Blood (Blood, Venous) 04/15/2025 10:59 AM CDT 04/15/2025 11:27 AM CDT Damian Yu M.D. LAB BLOOD ADD-ON Final Result [facility] [address] [place] [address], [facility] DTL [facility] [address] [place] [address] * (ABNORMAL) CBC with Differential, Blood (04/15/2025 10:59 AM CDT) Pathologist [facility] Hemoglobin 12.9 11.6 - 15.0 g/dL 04/15/2025 [...] 10:59 AM CDT 04/15/2025 11:30 AM CDT us Damian Yu M.D. LAB BLOOD ADD-ON Final Result [facility] [address] [place] [address], [facility] DTL [facility] [address] [place] [address] DHPM [facility] [address] [place] [address] documented in this encounter Visit Diagnoses Diagnosis General Medical Examination Adult- Primary Gammopathy Monoclonal Nonspecific General Medical Examination Adult Gammopathy Monoclonal Nonspecific documented in this encounter Care Teams Chicken Cutter Relationship Specialty Start Date End Date Vidal Glez M.D. [address] [place] [address] PCP - General Internal Medicine 12/31/24 documented as of this encounter
--- OUTSIDE RECORDS SUMMARY | 2025-04-17 00:21 | XMS_ITS | Encounter Summary ---
Author Organization [facility] Address [address] [place] [address] Care Team Providers Care Semi Automatic Sewing Machine Operator Name Role Phone Vidal Glez M.D. Primary Care Provider [phone] Reason for Visit * Reason Comments Med Refill Encounter Details Date Type Department Care Team (Late st Contact Info) Description 03/02/2025 Refill Division of Community Internal Medicine, [facility], in [place], [place] [address] [place] [address] Simba Fernandes M.D. [address] [place] [address] Med Refill Social History Tobacco Use Types Packs/Day Years Used Date Smoking Tobacco: Never Passive Smoke Exposure: Never Smokeless Tobacco: Never Alcohol Use Standard Drinks/Week Comments Never 0 (1 standard drink = 0.6 oz pur e alcohol) [facility] Utilities Answer Date Recorded In [...] your living situation today? I have a [facility] place to live 12/17/2024 Education Answer Date Recorded What is the highest level of school you have completed or the highest degree you have received? Associate degree: occupational, technical, or vocational program 04/02/2022 Comments No Sex and Gender Information Value Date Recorded Sex Assigned at Female 01/11/2018 10:39 AM CDT Legal Sex Female 7:52 AM KITCHEN BATH DESIGNER Gender Identity Female 01/11/2018 10:39 AM CDT Sexual Orientation Straight 01/11/2018 10 :39 AM CDT documented as of this encounter Plan of Treatment Upcoming Encounters Date Type Department Care Team (Late st Contact Info) Description 06/06/2025 11:45 AM KITCHEN BATH DESIGNER Appointment Department of Radiology, [facility], in [place], [place] [address] [place] [address] Nacho Browne M.B.B.S., M.S. [address] [place] [address] Discharge Disposition: Home or Self Care documented as of this encounter Visit Diagnoses Not on filedocumented in this encounter Care Teams Semi Automatic Sewing Machine Operator Relationship Specialty Start Date End Date Vidal Glez M.D. [address] [place] [address] PCP - General Internal Medicine 12/31/24 documented as of this encounter
[2025-04-17 00:22] VITALS: BP 142/98; PULSE 87; RESP 18; TEMP 36.3; O2SAT 98; BMI 21.5
--- NOTE | 2025-04-17 00:46 | ED.NAVMDI ---
HPI - Nausea/Vomiting/Diarrhea General Time Seen by Provider: 00:46 Date Seen: 04/17/25 Chief complaint: Nausea/Vomiting Stated complaint: vomiting Time Seen by Provider: 04/17/25 00:39 Source: patient Mode of arrival: ambulatory History of Present Illness HPI Narrative: Julia is a 85 yo female who presents the emergency department for evaluation of nausea, vomiting, diarrhea. Patient reports history of cyclic vomiting and states that yesterday she was feeling well until approximately 9:00 p.m.. Patient reports sudden onset of feeling extremely tired, bloated, nausea. Patient reports 1 episode of vomiting along with approximately 5 episodes of loose watery diarrhea. Patient states that when her symptoms started around 10:00 p.m. she took 4 mg ODT Zofran and then later around 2330 took a half a tablet of promethazine (total of 7.25). Patient reports no further episodes of vomiting however still with ongoing nausea and feeling unwell. Patient denies any fever, chills, chest pain, shortness of breath, abdominal pain. Patient states she follows at the [facility] and unclear etiology of her symptoms. Patient states that they want her to get a scan during an episode. Patient denies any prior abdominal surgeries, denies any urinary symptoms. No other complaints. Related Data Home Medications ?Medication ?Instructions ?Recorded ?Confirmed amlodipine 10 mg tablet 10 mg PO .Daily as needed 01/12/22 02/22/24 atorvastatin 40 mg tablet 40 mg PO .Bedtime 01/12/22 02/22/24 metoprolol succinate 50 mg 50 mg PO QDAY 01/12/22 02/22/24 tablet,extended release 24 hr omeprazole 40 mg capsule,delayed 40 mg PO QDAY 01/12/22 02/22/24 release ondansetron 4 mg disintegrating 4 mg PO PRN 01/12/22 01/05/23 tablet promethazine 25 mg tablet 25 mg PO PRN 01/12/22 01/05/23 calcium acetate 667 mg tablet 1,334 mg PO 3XD 11/25/22 01/05/23 cholecalciferol (vitamin D3) 25 25 mcg PO DAILY 11/25/22 01/05/23 mcg (1,000 unit) tablet Previous Rx's ?Medication ?Instructions ?Recorded nirmatrelvir 150 mg (10)-ritonavir See Rx Instructions PO .COMPLEX 02/23/24 100 mg (10) tablets in a dose pack #20 ea (Paxlovid) Allergies Allergy/AdvReac Type Severity Reaction Status Date / Time Sugars, Metabolically Active AdvReac Intermediate Fainting Verified 01/05/23 09:22 Review of Systems Narrative: Past medical history, past surgical history, medications, allergies, family history, and social history were reviewed with the patient. No additional pertinent items. A medically appropriate review of systems was performed with pertinent positives and negatives noted in HPI, all other systems negative. PFSH PFSH Surgical History History of hip replacement (~09/2019) ?Z96.649 - Presence of unspecified artificial hip joint (ICD-10) History of hysterectomy (~1989) ?Z90.710 - Acquired absence of both cervix and uterus (ICD-10) Social History Smoking Status: Never smoker Do you use any of these nicotine containing products: None How often do you have a drink containing alcohol: never How often do you have six or more drinks on one occasion: Never AUDIT-C Alcohol total score: 0 Non-prescribed substance use: denies use Exam Narrative: Exam Narrative: General: Afebrile, in distress HEENT: Normocephalic, atraumatic, conjunctiva normal. MMM Neck: non-tender, supple Cardio: regular rate. regular rhythm Resp: Normal work of breathing, no respiratory distress, lungs clear bilaterally, no wheezing, rhonchi, rales Chest/Back: no visual signs of trauma, no midline tenderness, no CVA tenderness Abdomen: soft, non distension, no tenderness, no peritoneal signs Neuro: alert and fully oriented. CN II-XII grossly intact. Grossly normal strength and sensation in all extremities. MSK: no deformities. Normal range of motion Integumentary/Skin: no rash visualized, normal color Psych: normal affect, normal behavior Const: Vital Signs, click to edit/add: Vital Signs - 24 hr 04/17/25 00:22 Temperature 97.3 F L Pulse Rate [Left P ulse Oximeter] 87 Respiratory Rate 18 Blood Pressure [Ri ght Upper Arm] 142/98 H Pulse Oximetry 98 Oxygen Delivery Me thod Room Air Course Vital Signs Vital signs: Initial Vital Signs Temperature 97.3 F L 04/17/25 00:22 Temperature Source Temporal Artery Scan 04/17/25 00:22 Pulse Rate 87 04/17/25 00:22 Pulse Rhythm Regular 04/17/25 00:22 Respiratory Rate 18 04/17/25 00:22 Blood Pressure 142/98 H 04/17/25 00:22 Blood Pressure Mean 112 H 04/17/25 00:22 Blood Pressure Position Sitting 04/17/25 00:22 Pulse Oximetry 98 04/17/25 00:22 Oxygen Delivery Method Room Air 04/17/25 00:22 Vital Signs Temperature 97.3 F L 04/17/25 00:22 Pulse Rate 87 04/17/25 00:22 Respiratory Rate 18 04/17/25 00:22 Blood Pressure 142/98 H 04/17/25 00:22 Pulse Oximetry 98 04/17/25 00:22 Oxygen Delivery Method Room Air 04/17/25 00:22 Temperature 97.3 F L 04/17/25 00:22 Pulse Rate 87 04/17/25 00:22 Respiratory Rate 18 04/17/25 00:22 Blood Pressure 142/98 H 04/17/25 00:22 Pulse Oximetry 98 04/17/25 00:22 Oxygen Delivery Method Room Air 04/17/25 00:22 Medications Administered Medications: Discontinued Medications Generic Name Dose Route Start Last Admin Trade Name Freq PRN Reason Stop Dose Admin Sodium Chloride 1,000 mls @ 1,000 mls/hr 04/17/25 01:30 04/17/25 03:02 0.9 % Sodium Chloride 1000 Ml IV 04/17/25 02:29 Infused .Q1H QUYNH Infusion Ondansetron HCl 4 mg 04/17/25 01:18 04/17/25 01:31 Ondansetron 2 Mg/Ml Inj IVP 04/17/25 01:19 4 mg ONCE ONE Administration MDM - Nausea/Vomiting/Diarrhea MDM Narrative Medical decision making narrative: Julia is a 85 yo female who presents the emergency department for evaluation of nausea, vomiting, diarrhea. Upon arrival patient is nontoxic appearing, afebrile, in distress. Patient is slightly hypertensive upon arrival 142/98, heart rate 87, oxygen 98% on room air. Abdomen is soft, nontender, nondistended with no peritoneal signs. Differential diagnosis includes but is not limited to gastritis versus gastroenteritis versus pancreatitis versus cholecystitis versus appendicitis versus cyclic vomiting versus colitis versus enteritis among others. Upon arrival patient was treated with 1 L IV fluid bolus, IV Zofran, comprehensive labs and CT imaging performed. Comprehensive labs unremarkable with no leukocytosis white blood cell count 7.7, hemoglobin 12.1, no acute metabolic electrolyte abnormality, no significant transaminitis, normal lipase. Urinalysis with no evidence of acute infection. I personally reviewed interpreted CT scan the abdomen pelvis which demonstrates no acute intra-abdominal pathology/etiology of patient's symptoms however there are multiple incidental findings such as cholelithiasis with no evidence of acute cholecystitis, diverticulosis with no evidence of acute diverticulitis, large hiatal hernia, no evidence of bowel obstruction, moderate amount of colonic stool burden. On re-evaluation patient resting comfortably, reports significant improvement of symptoms, no further episodes of vomiting, reports resolution of nausea, patient feels better and would like to discharge home. Patient was able to tolerate water without difficulty and feels comfortable discharge with her primary care provider and GI specialist. CT images were pushed to [facility] for her providers to review. Recommend continue supportive care, oral hydration, soft/bland diet, advance as tolerated, strict return precautions discussed. Patient understands and agrees the plan. Medical Records Attestation: I reviewed the patient's medical records. Lab Data Attestation: I reviewed the patient's lab results. Labs: Lab Results 04/17/25 04/17/25 Range/Units 01:05 01:45 WBC 7.75 (4.50-11.00) K/uL RBC 4.26 (4.00-5.20) m/uL Hgb 12.1 (12.0-16.0) gm/dL Hct 37.2 (33.0-51.0) % MCV 87 (80-100) fL MCH 28 (26-34) pg MCHC 33 (32-36) gm/dL RDW Coeff of Ainsley 14.4 (11.5-15.5) % Plt Count 246 (140-440) K/uL Neut % (Auto) 50.0 (42.0-72.0) % Lymph % (Auto) 32.3 (20-44) % Holmes % (Auto) 13.9 H (0.0-11.0) % Eos % (Auto) 3.2 (0.0-7.0) % Baso % (Auto) 0.5 (0.0-3.0) % Neut # (Auto) 3.87 (1.7-7.0) K/uL Lymph # (Auto) 2.50 (0.90-2.90) K/uL Holmes # (Auto) 1.10 H (0.00-0.90) K/UL Eos # (Auto) 0.25 (0.00-0.50) K/uL Baso # (Auto) 0.04 (0.00-0.30) K/uL Abs Immat Gran (auto) 0.01 (0.00-0.30) K/uL Imm/Tot Granulo (auto) 0.1 % Sodium 139 (135-149) mmol/L Potassium 4.2 (3.6-5.1) mmol/L Chloride 104 (96-114) mmol/L Carbon Dioxide 25 (20-32) mmol/L Anion Gap 10 (7-15) mEq/L BUN 34 H (7-30) mg/dL Creatinine 1.1 (0.5-1.5) mg/dL Estimated Creat Clear 32.29 Estimated GFR 49 ml/min Glucose 100 (60-115) mg/dL Calcium 9.3 (8.4-10.6) mg/dL Total Bilirubin 0.3 (0.1-1.5) mg/dL AST 39 H (12-35) U/L ALT 24 (4-35) U/L Alkaline Phosphatase 109 (40-150) U/L Total Protein 7.1 (6.0-8.3) g/dL Albumin 4.1 (3.3-5.0) g/dL Lipase 183 (23-300) U/L Urine Color Yellow (Yellow) Urine Appearance Clear (Clear) Urine pH 5.5 (5.0-8.5) Ur Specific [place] 1.015 (1.000-1.030) Urine Protein Negative (Negative) Urine Glucose (UA) Negative (Negative) Urine Ketones Negative (Negative) Urine Blood Trace-intact A (Negative) Urine Nitrite Negative (Negative) Urine Bilirubin Negative (Negative) Urine Urobilinogen 0.2 (0.2-1.0) Ur Leukocyte Esterase Negative (Negative) Urine RBC 0-2 (0-2) Urine WBC 0-2 (0-5) Ur Squamous Epith Cells Few (None-Few) Urine Bacteria None (None) Imaging Data CT scan - abdomen: Attestation: I have reviewed the pertinent imaging results. Radiologist's impression: CT abdomen and pelvis acquired with 61 cc Isovue 370 IV contrast. COMPARISON: CT abdomen pelvis 12/02/2022. FINDINGS: Lower chest: Unremarkable. Liver: Scattered hepatic cysts, largest measuring 3.2 cm. Gallbladder and bile ducts: Cholelithiasis. No pericholecystic fluid. No biliary dilatation. Pancreas: Unremarkable. Spleen: Unremarkable. Adrenal glands: Unremarkable. Kidneys: Bilateral parapelvic renal cysts. No hydronephrosis or hydroureter. No urinary calculi. Symmetric renal enhancement. GI tract: Large hiatal hernia. No bowel obstruction. Colonic diverticulosis without acute diverticulitis. Moderate colonic stool burden. Normal appendix. No suspicious bowel wall thickening. Vasculature: Atherosclerotic calcifications. No abdominal aortic aneurysm. Grossly patent vasculature. Lymph nodes: No suspicious lymphadenopathy. Peritoneum/Abdominal Wall: No ascites or pneumoperitoneum. No acute abdominal wall abnormality. Pelvis: Normal bladder. No suspicious adnexal mass. Bones: Left total hip arthroplasty grossly within normal limits. No acute osseous abnormality. IMPRESSION: 1. No acute intra-abdominal/pelvic pathology identified. 2. Large hiatal hernia. 3. Moderate colonic stool burden. 4. Colonic diverticulosis without acute diverticulitis. 5. Cholelithiasis without CT evidence of acute cholecystitis. Discharge Plan Discharge Clinical Impression: Nausea & vomiting, Diarrhea Patient Disposition: Home, Self-Care Additional Instructions: Your CT images have been pushed to the [facility] per your request. Please follow-up with your primary care provider as well as your community action worker in the next few days for further evaluation and follow-up. Please rest, drink plenty of water, please start with a soft/bland diet and slowly advance as tolerated over the next 24-48 hours. Please continue on medications. Please return to the ER if you develop persistent high fever, severe abdominal pain, persistent vomiting, worsening symptoms. It was a pleasure taking care of you today. We hope you feel better soon. Prescriptions: No Action amlodipine 10 mg tablet 10 mg PO .Daily as needed atorvastatin 40 mg tablet 40 mg PO .Bedtime omeprazole 40 mg capsule,delayed release(DR/EC) 40 mg PO QDAY ondansetron 4 mg tablet,disintegrating 4 mg PO PRN metoprolol succinate 50 mg tablet extended release 24 hr 50 mg PO QDAY promethazine 25 mg tablet 25 mg PO PRN calcium acetate 667 mg tablet 1,334 mg PO 3XD cholecalciferol (vitamin D3) 25 mcg (1,000 unit) tablet 25 mcg PO DAILY Paxlovid 150-100 mg tablets,dose pack See Rx Instructions .ROUTE .COMPLEX Qty: 20 0RF Rx Instructions: orally per package directions Follow Up/Referrals: Ginny Garcia MD [Primary Care Provider, Internal Medicine] Stand Alone Forms: [facility] Info Inst[facility]
[2025-04-17 01:11] LABS: Hematocrit* 37.2 % (33.0-51.0); Hemoglobin* 12.1 gm/dL (12.0-16.0); Immature Granulocytes Abs Auto 0.01 K/uL (0.00-0.30); Immature Granulocytes Pct Auto 0.1 %; Lymphocytes Absolute Auto 2.50 K/uL (0.90-2.90); Mean Corpuscular HGB Conc 33 gm/dL (32-36); Mean Corpuscular Hemoglobin 28 pg (26-34); Mean Corpuscular Volume 87 fL (80-100); RDW Coefficient of Variation % 14.4 % (11.5-15.5); Red Blood Count* 4.26 m/uL (4.00-5.20); White Blood Count* 7.75 K/uL (4.50-11.00)
[2025-04-17 01:16] LABS: Slide Review Reflex No
--- NOTE | 2025-04-17 01:19 | CRLHL7_ITS ---
For Patients: As a result of the Century Cures Act, medical imaging exams and procedure reports are released immediately into your electronic medical record. You may view this report before your referring provider. If you have questions, please contact your health care provider. INDICATION: Vomiting and diarrhea. TECHNIQUE: CT abdomen and pelvis acquired with 61 cc Isovue 370 IV contrast. COMPARISON: CT abdomen pelvis 12/02/2022. FINDINGS: Lower chest: Unremarkable. Liver: Scattered hepatic cysts, largest measuring 3.2 cm. Gallbladder and bile ducts: Cholelithiasis. No pericholecystic fluid. No biliary dilatation. Pancreas: Unremarkable. Spleen: Unremarkable. Adrenal glands: Unremarkable. Kidneys: Bilateral parapelvic renal cysts. No hydronephrosis or hydroureter. No urinary calculi. Symmetric renal enhancement. GI tract: Large hiatal hernia. No bowel obstruction. Colonic diverticulosis without acute diverticulitis. Moderate colonic stool burden. Normal appendix. No suspicious bowel wall thickening. Vasculature: Atherosclerotic calcifications. No abdominal aortic aneurysm. Grossly patent vasculature. Lymph nodes: No suspicious lymphadenopathy. Peritoneum/Abdominal Wall: No ascites or pneumoperitoneum. No acute abdominal wall abnormality. Pelvis: Normal bladder. No suspicious adnexal mass. Bones: Left total hip arthroplasty grossly within normal limits. No acute osseous abnormality. IMPRESSION: 1. No acute intra-abdominal/pelvic pathology identified. 2. Large hiatal hernia. 3. Moderate colonic stool burden. 4. Colonic diverticulosis without acute diverticulitis. 5. Cholelithiasis without CT evidence of acute cholecystitis. Please note that all CT scans at this facility use dose modulation, iterative reconstruction, and/or weight-based dosing when appropriate to reduce radiation dose to as low as reasonably achievable. Dictated by Tree Servin MD @ 04/17/2025 3:23:37 AM (Electronically Signed)
[2025-04-17 01:28] LABS: Albumin* 4.1 g/dL (3.3-5.0); Chloride* 104 mmol/L (96-114); Potassium* 4.2 mmol/L (3.6-5.1); Sodium* 139 mmol/L (135-149)
[2025-04-17 01:31] LABS: Alanine Aminotransferase* 24 U/L (4-35); Alkaline Phosphatase* 109 U/L (40-150); Anion Gap 10 mEq/L (7-15); Aspartate Amino Transferase* 39 U/L (12-35); Bilirubin Total* 0.3 mg/dL (0.1-1.5); Blood Urea Nitrogen* 34 mg/dL (7-30); Calcium* 9.3 mg/dL (8.4-10.6); Carbon Dioxide* 25 mmol/L (20-32); Creatinine* 1.1 mg/dL (0.5-1.5); Est. Creatinine Clearance* 32.29; Estimated Glomerular Filt Rate 49 ml/min; Glucose* 100 mg/dL (60-115); Total Protein* 7.1 g/dL (6.0-8.3)
[2025-04-17] MEDS: ONDANSETRON 2 MG/ML inj 4 MG IVP (01:31)
[2025-04-17 02:00] LABS: Appearance Urine Clear (Clear)
== END 2025-04-17 04:34 | disposition home or self-care (01) ==
PROVIDERS: Emergency Provider Emergency Medicine; PCP Internal Medicine
DX: R11.2 Nausea with vomiting, unspecified (principal); R19.7 Diarrhea, unspecified
CPT/HCPCS: 36415; 74177; 80053; 81001; 83690; 85025; 96374; 99284; 99285; J2405; J7030; Q9967